=== PATIENT | male | born 1985 | race Caucasian/White ===

== ENCOUNTER 2016-06-22 02:40 | Emergency (ER) | payer MEDICAID ==
[2016-06-22 02:50] VITALS: BP 133/101
--- NOTE | 2016-06-22 03:04 | EDM.PDOC ---
ED HPI Skin/Rash - General Chief Complaint: Laceration Stated Complaint: LACERATION ON LEFT HAND Time Seen by Provider: 06/22/16 03:01 Source: Reports: Patient, Family History Limitations: Reports: No limitations - History of Present Illness INITIAL COMMENTS - FREE TEXT/NARRATIVE: 30-year-old male arrives in the ED for evaluation of a flap laceration to the tip of his left third finger. Reports he slipped with his steak knife at home tonight with resultant laceration. Inspection of the laceration reveals it to be very thin and of short duration i.e. less than 5 mm.it is not actively bleeding at the time of my exam. He is a little bit unsure about when his last tetanus toxoid was given but after thinking about it for a period of time believes he is up-to-date i.e. within the last 10 years. 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) - Related Data Allergies Allergy/AdvReac Type Severity Reaction Status Date / Time naproxen Allergy Diarrhea Verified 06/22/16 02:50 Home Meds: Ambulatory Orders Medication Instructions Recorded Confirmed LORazepam 0.5 mg PO DAILY 11/02/15 06/22/16 Past Medical History - Past Health History Medical/Surgical History: Denies Medical/Surgical History Psychiatric History: Reports: Anxiety - Past Surgical History HEENT Surgical History: Reports: Tonsillectomy Social & Family History - Tobacco Use Smoking Status *Q: Never Smoker Used Tobacco, but Quit: Yes Month Tobacco Last Used: 2 years Second Hand Smoke Exposure: Yes - Caffeine Use Caffeine Use: Reports: Soda - Alcohol Use Days Per Week of Alcohol Use: 7 Number of Drinks Per Day: 4 Total Drinks Per Week: 28 - Recreational Drug Use Recreational Drug Use: No - Living Situation & Occupation Living situation: Reports: , with family 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[employer]) ED ROS GENERAL - Review of Systems Review Of Systems: See Below Constitutional: Reports: no symptoms HEENT: Reports: No symptoms Respiratory: Reports: no symptoms Cardiovascular: Reports: No symptoms Endocrine: Reports: no symptoms GI/Abdominal: Reports: No symptoms : Reports: no symptoms Neurological: Reports: headache (occasional headaches) Psychiatric: Reports: Anxiety (issues with anxiety that he sometimes needs lorazepam 4.) ED EXAM, SKIN/RASH Exam: See Below Exam Limited By: No limitations General Appearance: alert, WD/WN, anxious, mild distress, other (peers very tired.) Extremities: other (examination was limited to his left distal third finger. There is a small flap laceration measuring less than 0.5 mm in length. I repeated the tip of the flap as it was very thin. I was then able to close the wound with skin glue. Topical circumferential bandage placed.) Neurological: alert, oriented, CN II-XII intact, normal cognition Psychiatric: normal affect, normal mood Skin: Warm, Dry, Intact, Normal color, No rash Course - Vital Signs Last Recorded V/S: Last Vital Signs Temp 36.3 C 06/22/16 02:48 Pulse 99 06/22/16 02:48 Resp 16 06/22/16 02:48 BP 133/101 H 06/22/16 02:48 Pulse Ox 97 06/22/16 02:48 - Radiology Interpretation Free Text/Narrative:: 30-year-old male arrives in the ED for evaluation of a flap laceration to the radial tip of his left third finger. He slipped with a steak knife at home with a small flap laceration along the nailbed. It was less than 0.5 mm in length. I debrided the tip of the flap as it was very thin. I was unable to squeeze the wound together and fluid with skin glue. He will where a circumferential bandage around the finger for 4-5 days until the wound heals. Departure - Departure Time of Disposition: 03:01 Disposition: Home, Self-Care 01 Condition: fair Clinical Impression: Laceration of finger Qualifiers: Encounter type: initial encounter Qualified Code(s): S61.219A - Laceration without foreign body of unspecified finger without damage to nail, initial encounter Instructions: Laceration Care, Adult Referrals: Gena Freire DO [Primary Care Provider] - Forms: ED Department Discharge Additional Instructions: Evaluation emergent today in regards to a small flap laceration along the nailbed of the left third finger. This occurred when he slipped with a steak knife tonight at home. the wound was not deep enough to require sutures. The tissue that was very thin was removed with scissors. The wound is then closed using skin glue. Nothing further needs to be done to the finger.suggested a circumferential bandage on the area just to protect it for the next 4-5 days. It needs to of course be kept dry in the workplacefor about the next week. Suggest wearing latex gloves.
== END 2016-06-22 03:31 | disposition home or self-care (01) ==
LOC: JD.ED 02:40
DX: S61.213A Laceration without foreign body of left middle finger without damage to nail, initial encounter (principal); F41.9 Anxiety disorder, unspecified; Z98.890 Other specified postprocedural states; Z88.8 Allergy status to other drugs, medicaments and biological substances; W26.0XXA Contact with knife, initial encounter; Y92.009 Unspecified place in unspecified non-institutional (private) residence as the place of occurrence of the external cause
CPT/HCPCS: 12001; 99282-25; 99283-25

== ENCOUNTER 2016-12-01 22:02 | Emergency (ER) | payer BC, MEDICAID ==
[2016-12-01 22:31] VITALS: BP 135/90
[2016-12-01] MEDS ORDERED: Acetaminophen 325 MG Tab PO ONE (22:48)
--- NOTE | 2016-12-01 23:11 | EDM.PDOC ---
<Unique Robles - Last Filed: 12/02/16 16:29> ED HPI GENERAL MEDICAL PROBLEM - General Chief Complaint: Lower Extremity Injury/Pain Stated Complaint: Knee pain Time Seen by Provider: 12/01/16 22:30 - Related Data Allergies Allergy/AdvReac Type Severity Reaction Status Date / Time naproxen Allergy Diarrhea Verified 12/03/16 22:42 Home Meds: Home Meds LORazepam 0.5 mg PO DAILY 11/02/15 [History] oxyCODONE HCl/Acetaminophen [Percocet 5-325 mg Tablet] 1 - 2 each PO Q4H PRN # 20 tablet 12/04/16 [Rx] Course - Vital Signs Last Recorded V/S: Last Vital Signs Temp 98.1 F 12/01/16 22:28 Pulse 109 H 12/01/16 22:28 Resp 16 12/01/16 22:28 BP 135/90 12/01/16 22:28 Pulse Ox 97 12/01/16 22:28 - Orders/Labs/Meds Meds: Medications Discontinued Medications Generic Name Dose Route Start Last Admin Trade Name Freq PRN Reason Stop Dose Admin Acetaminophen 975 mg 12/01/16 22:48 12/01/16 22:53 Tylenol PO 12/01/16 22:49 975 mg NOW ONE Administration - Radiology Interpretation Free Text/Narrative:: Right of the right knee impression per Dr. Moya: 1. slight medial joint space narrowing as compared to the lateral joint. 2. No acute abnormality is seen on right knee exam. Departure - Departure Disposition: Home, Self-Care 01 Clinical Impression: Right knee sprain Qualifiers: Encounter type: initial encounter Involved ligament of knee: unspecified ligament Qualified Code(s): S83.91XA - Sprain of unspecified site of right knee , initial encounter - Discharge Information Instructions: Knee Sprain, [id number] Referrals: PCP,None [Primary Care Provider] - Forms: ED Department Discharge Additional Instructions: Rest, ice and elevate Tylenol and/or Ibuprofen as needed for pain Follow-up with one of our orthopedic surgeons if not improved in 1-2 weeks: Dr. Thompson [phone] Dr. Euceda [phone] <Areli Womack - Last Filed: 12/05/16 19:31> ED HPI GENERAL MEDICAL PROBLEM - General Source of Information: Reports: Patient, RN Notes Reviewed History Limitations: Reports: No Limitations - History of Present Illness INITIAL COMMENTS - FREE TEXT/NARRATIVE: 31 year old male presents to the ED with complaints of right knee pain and swelling after falling from a chair. No numbness or tingling. He has pain with bearing weight. He's had surgery on this knee in the past. No additional injury. Right Knee Pain Score (Numeric/FACES): 8 Past Medical History - Past Health History Medical/Surgical History: Denies Medical/Surgical History Psychiatric History: Reports: Anxiety - Past Surgical History HEENT Surgical History: Reports: Tonsillectomy Social & Family History - Family History Cardiac: Reports: Bypass Endocrine/Metabolic: Reports: Diabetes, type II - Tobacco Use Smoking Status *Q: Never Smoker Used Tobacco, but Quit: Yes Month Tobacco Last Used: 2 years Second Hand Smoke Exposure: Yes - Caffeine Use Caffeine Use: Reports: Soda - Alcohol Use Days Per Week of Alcohol Use: 7 Number of Drinks Per Day: 4 Total Drinks Per Week: 28 - Recreational Drug Use Recreational Drug Use: No - Living Situation & Occupation Living situation: Reports: , with Family Occupation: Employed Review of Systems - Review of Systems Review Of Systems: See Below Musculoskeletal: Reports: Joint Pain, Joint Swelling Skin: Reports: No Symptoms Neurological: Denies: Numbness, Tingling, Weakness ED EXAM, GENERAL - Physical Exam Exam: See Below Exam Limited By: No Limitations General Appearance: Alert, WD/WN, No Apparent Distress Extremities: Joint Swelling, Leg Pain (right knee ) Neurological: Alert, Normal Cognition, No Motor/Sensory Deficits Skin Exam: Warm, Dry, Intact Course - Re-Assessments/Exams Free Text/Narrative Re-Assessment/Exam: X-rays of right knee are negative for bony abnormality. Educated on supportive care. Instructed to f/u with ortho if not improved in 1-2 weeks. Departure - Departure Time of Disposition: 23:10 Condition: Good
--- NOTE | 2016-12-02 10:44 | CR ---
Right knee: Four views of the right knee were obtained. Comparison: Previous right knee study of 03/25/16. Very slight medial joint space narrowing is seen as compared to the lateral joint compartment. No joint effusion is appreciated. No fracture or other bony abnormality is appreciated. Impression: 1. Slight medial joint space narrowing as compared to the lateral joint. 2. No acute abnormality is seen on right knee exam. Diagnostic code #2
== END 2016-12-01 23:15 | disposition home or self-care (01) ==
LOC: JD.ED 22:02
DX: S83.91XA Sprain of unspecified site of right knee, initial encounter (principal); F41.9 Anxiety disorder, unspecified; Z79.899 Other long term (current) drug therapy; Z98.890 Other specified postprocedural states; Z87.891 Personal history of nicotine dependence; W07.XXXA Fall from chair, initial encounter
CPT/HCPCS: 73564; 99284; A9270; 99282

== ENCOUNTER 2016-12-03 22:27 | Emergency (ER) | payer BC, MEDICAID ==
[2016-12-03 22:42] VITALS: BP 140/100
--- NOTE | 2016-12-03 23:15 | EDM.PDOC ---
ED HPI GENERAL MEDICAL PROBLEM - General Chief Complaint: Lower Extremity Injury/Pain Stated Complaint: RIGHT KNEE EXTENDED Time Seen by Provider: 12/03/16 23:10 Source of Information: Reports: Patient History Limitations: Reports: No Limitations - History of Present Illness INITIAL COMMENTS - FREE TEXT/NARRATIVE: 30-year-old male presents the ED with acute onset of severe right knee pain. He states he was out playing hide and seek with his kids when he went to jump over a small chain-link fence. He landed with all of his weight on his right knee. The knee gave out and buckled and caused him to fall to the ground. The pain was severe and he was unable to get up on his own volition he had to be helped up by friends. The known ACL tear in the right knee but elected conservative treatment versus surgery management. When he tries to walk now he feels complete instability of the knee. He denies any other injuries. Onset: Today Onset Date: 12/03/16 Onset Time: 22:50 Duration: Minutes: Location: Reports: Lower Extremity, Right Quality: Reports: Ache (Right knee), Throbbing Severity: Severe (Pain is severe when he tries to stand or walk.) Improves with: Reports: Other Worsens with: Reports: Other (Not moving) Context: Reports: Activity ( weightbearing was running and jumping over a chain link fence when he developed sudden onset of severe right knee pain in the buckling and giving out. 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 Right Knee Pain Score (Numeric/FACES): 8 - Related Data Allergies Allergy/AdvReac Type Severity Reaction Status Date / Time naproxen Allergy Diarrhea Verified 12/03/16 22:42 Home Meds: Home Meds LORazepam 0.5 mg PO DAILY 11/02/15 [History] oxyCODONE HCl/Acetaminophen [Percocet 5-325 mg Tablet] 1 - 2 each PO Q4H PRN # 20 tablet 12/04/16 [Rx] Past Medical History - Past Health History Medical/Surgical History: Denies Medical/Surgical History Musculoskeletal History: Reports: Fracture, Other (See Below) Other Musculoskeletal History: Torn ACL in the right knee in the past treated conservatively without surgery. Psychiatric History: Reports: Anxiety - Past Surgical History HEENT Surgical History: Reports: Tonsillectomy Social & Family History - Family History Family Medical History: Noncontributory Cardiac: Reports: Bypass Endocrine/Metabolic: Reports: Diabetes, type II - Tobacco Use Smoking Status *Q: Former Smoker Used Tobacco, but Quit: Yes Month Tobacco Last Used: 12/03/2002 Second Hand Smoke Exposure: Yes - Caffeine Use Caffeine Use: Reports: Soda - Alcohol Use Days Per Week of Alcohol Use: 7 Number of Drinks Per Day: 4 Total Drinks Per Week: 28 - Recreational Drug Use Recreational Drug Use: No - Living Situation & Occupation Living situation: Reports: , with Family Occupation: Employed Review of Systems - Review of Systems Review Of Systems: See Below Constitutional: Reports: No Symptoms Eyes: Reports: No Symptoms Ears: Reports: No Symptoms Nose: Reports: No Symptoms Mouth/Throat: Reports: No Symptoms Respiratory: Reports: No Symptoms Cardiovascular: Reports: No Symptoms GI/Abdominal: Reports: No Symptoms Musculoskeletal: Reports: Joint Pain Skin: Reports: No Symptoms (Severe right knee pain at present) Neurological: Reports: No Symptoms Psychiatric: Reports: No Symptoms ED EXAM, GENERAL - Physical Exam Exam: See Below Exam Limited By: No Limitations General Appearance: Alert, WD/WN, Anxious, Moderate Distress Eye Exam: Bilateral Eye: Normal Inspection Cardiovascular: Normal Peripheral Pulses, Regular Rate, Rhythm, No Edema, No Murmur Peripheral Pulses: 2+: Posterior Tibial (L), Posterior Tibial (R), Dorsalis Pedis (L), Dorsalis Pedis (R) GI/Abdominal: Soft Extremities: Other (On examination of his right knee there is no evidence of a traumatic effusion at this time. Pain is primarily across the anterior medial joint space. He is warm to palpation. He has some superficial abrasions that travels along the medial aspect of the knee starting at the proximal tibia and ending up shelter up his left medial thigh in the distribution of the hamstrings. It I believe this is where the chain link fence scraped along his leg. Examination of his knee was carried out after x-rays confirm no bony injuries. He has no significant instability of the anterior posterior cruciate ligaments on examination. There is swelling along the medial aspect of the knee and on valgus straining of the knee he exhibits a grade 2 MCL tear. Again there is no significant traumatic effusion in the knee to suggest meniscal tear at this time.) Neurological: Alert ( anterior tibia on the left side.), Oriented, CN II-XII Intact, Normal Cognition, Normal Gait, No Motor/Sensory Deficits Psychiatric: Other Skin Exam: Warm, Dry (Very dramatic affect.), Intact, Normal Color, No Rash Course - Vital Signs Last Recorded V/S: Last Vital Signs Temp 36.3 C 12/03/16 22:37 Pulse 82 12/03/16 22:37 Resp 18 12/03/16 22:37 BP 140/100 H 12/03/16 22:37 Pulse Ox 95 12/03/16 22:37 - Orders/Labs/Meds Orders: Active Orders 24 hr Category Date Time Status Knee 3V Rt [CR] Stat Exams 12/03/16 23:31 Taken Meds: Medications Discontinued Medications Generic Name Dose Route Start Last Admin Trade Name Freq PRN Reason Stop Dose Admin Oxycodone/Acetaminophen 2 tab 12/04/16 00:12 12/04/16 00:22 Percocet 325-5 Mg PO 12/04/16 00:13 2 tab ONETIME ONE Administration - Radiology Interpretation Free Text/Narrative:: 31-year-old male presents the ED with acute onset of severe right knee pain after jumping over a chain link fence. Patient has previous problems with ACL tear in his right knee and he landed with all of his weight on his right knee tonight while he was jumping over the small chain-link fence. The knee buckled and gave out propelling him to the ground. Pain was excruciating and he could got not get up on his own volition. On examination he has no obvious effusion of the knee yet. Coarse he arrived within 20 minutes of injury. The knee feels completely unstable when he tries to weight-bear or put weight on it. Suggest complete tear of his ACL and possibly PCL as well. Plan x-ray of the need to be done. - Re-Assessments/Exams Free Text/Narrative Re-Assessment/Exam: 12/04/16 00:01 x-ray of the right knee is within normal limits showing no obvious effusion and certainly no fractures or tibial plateau injuries. 12/04/16 00:15: I assessed his knee again from a ligament standpoint. There appears to be no instability of the anterior posterior cruciate ligaments. There is no midline tenderness particularly anteriorly and medially over the MCL. On stressing the MCL but with valgus strain in full extension. Minimal pain at 30 flexion he does exhibit some laxity of the MCL suggesting grade 2 strain. There is no effusion of the knee at the time of second examination. He will be placed in a long knee immobilizer and I think he'll get along okay with this without crutches. He will ice the knee one half hour out of every 4 hours today and tomorrow. He has inability to have alternative work where he would not have to climb up into machinery in the workplace for the next few weeks. Will use Motrin 600 mg every 6 hours. For pain relief and a prescription was written for 20 tablets of Percocet 5/325 milligrams one or 2 every 4-6 hours for pain relief for the next few days. He will follow-up with orthopedic surgery in 2-3 weeks' time if knee as not returning to its normal status before injury tonight. Departure - Departure Time of Disposition: 00:13 Disposition: Home, Self-Care 01 Condition: Fair Clinical Impression: Sprain of MCL (medial collateral ligament) of knee Qualifiers: Encounter type: initial encounter Laterality: right Qualified Code(s): S83.411A - Sprain of medial collateral ligament of right knee, initial encounter - Discharge Information Prescriptions: oxyCODONE HCl/Acetaminophen [Percocet 5-325 mg Tablet] 1 - 2 each PO Q4H PRN # 20 tablet PRN Reason: pain relief. Instructions: Medial Collateral Knee Ligament Sprain With Phase I Rehab- [facility] Referrals: PCP,None [Primary Care Provider] - Forms: ED Department Discharge Additional Instructions: Evaluation in the emergency room tonight in regards to acute injury to the right knee while jumping over a small fence. The history suggests internal derangement or instability of the right knee. History of previous ACL tear. Examination reveals swelling along the medial or inside aspect of the knee and there is a grade 2 strain of the medial collateral ligament. Therefore there may also be a partial tear of the medial meniscus or cartilage within the knee. The cruciate ligaments appear to be intact on examination. X-ray of the knee is normal. Treatment is therefore time to heal. Suggest knee immobilizer on during the day and off at night. Suggest using this for a minimum of 3 weeks and then see if you can go without it with out pain or feeling of the knee being unstable. Suggest ice pack to the knee one half hour out of every 4 hours today and tomorrow. May use Percocet 5//25 milligram tablets one or 2 every 4-6 hours for pain relief as needed. As we discussed he may have to have alternative work duties in the workplace for the next 2-3 weeks that she will not be able to climb up and down out of machinery etc. Suggest follow-up with orthopedic surgeon in 3 weeks' time to see if there is still significant instability of the MCL ligament. Please phone Dr. Thompson's office next week to arrange an appointment. The numbers [phone]. - My Orders Last 24 Hours: My Active Orders 12/03/16 23:31 Knee 3V Rt [CR] Stat - Assessment/Plan Last 24 Hours: My Active Orders 12/03/16 23:31 Knee 3V Rt [CR] Stat
[2016-12-03] MEDS ORDERED: Iopamidol 612 MG/ML 150 ML Bottle IVPUSH ONE (23:23)
[2016-12-04] MEDS ORDERED: Acetaminophen/oxyCODONE 325-5 MG Tab PO ONE (00:12)
--- NOTE | 2016-12-05 07:24 | CR ---
Right knee: AP and lateral views of the right knee were obtained as well as sunrise patellar view. Comparison: Previous right knee study of 12/01/16. Findings: Joint spaces appear maintained on this exam. No joint effusion is seen. Patellofemoral joint appears within normal limits. Impression: 1. Nothing acute is appreciated. Diagnostic code #1
== END 2016-12-04 00:35 | disposition home or self-care (01) ==
LOC: JD.ED 22:27
DX: S83.411A Sprain of medial collateral ligament of right knee, initial encounter (principal); F41.9 Anxiety disorder, unspecified; E11.9 Type 2 diabetes mellitus without complications; Z88.5 Allergy status to narcotic agent; Z98.890 Other specified postprocedural states; Z79.899 Other long term (current) drug therapy; Z87.891 Personal history of nicotine dependence; W17.89XA Other fall from one level to another, initial encounter; Y93.39 Activity, other involving climbing, rappelling and jumping off
CPT/HCPCS: 73562; 99283; A9270

== ENCOUNTER 2017-02-28 19:53 | Emergency (ER) | payer BC, MEDICAID ==
[2017-02-28 20:00] VITALS: BP 145/95
[2017-02-28] MEDS ORDERED: Sodium Chloride 0.9% 1,000 ML IV ONE (20:26)
--- NOTE | 2017-02-28 20:37 | EDM.PDOC ---
ED HPI GENERAL MEDICAL PROBLEM - General Chief Complaint: Abdominal Pain Stated Complaint: RIGHT SIDE PAIN Time Seen by Provider: 02/28/17 20:10 Source of Information: Reports: Patient History Limitations: Reports: No Limitations - History of Present Illness INITIAL COMMENTS - FREE TEXT/NARRATIVE: 31-year-old male presents for evaluation treatment of right-sided abdominal pain. Patient reports that the pain has been present for the last week. He states that is episodic in nature and comes and goes. He gets that currently the pain is a 5 out of 10. States it is a sharp, stabbing pain. He reports associated symptoms of diarrhea and nausea. He has not taken his temperature but has felt warm. No vomiting, dysuria, hematuria, melena or constipation. Reports he's had about 5 episodes of diarrhea per day. Patient denies any recent antibiotics. Patient denies any recent travel. No previous surgeries to his abdomen. Duration: Week(s): (1) Location: Reports: Abdomen (RLQ) Right Abdominal Pain Score (Numeric/FACES): 5 - Related Data Allergies Allergy/AdvReac Type Severity Reaction Status Date / Time naproxen Allergy Diarrhea Verified 02/28/17 19:57 Home Meds: Home Meds LORazepam 0.5 mg PO DAILY 11/02/15 [History] Past Medical History - Past Health History Medical/Surgical History: Denies Medical/Surgical History Musculoskeletal History: Reports: Fracture, Other (See Below) Other Musculoskeletal History: Torn ACL in the right knee in the past treated conservatively without surgery. Psychiatric History: Reports: Anxiety - Past Surgical History HEENT Surgical History: Reports: Tonsillectomy Social & Family History - Family History Family Medical History: Noncontributory Cardiac: Reports: Bypass Endocrine/Metabolic: Reports: Diabetes, type II - Tobacco Use Smoking Status *Q: Never Smoker Used Tobacco, but Quit: Yes Month Tobacco Last Used: 12/03/2002 Second Hand Smoke Exposure: Yes - Caffeine Use Caffeine Use: Reports: Soda - Alcohol Use Days Per Week of Alcohol Use: 7 Number of Drinks Per Day: 4 Total Drinks Per Week: 28 - Recreational Drug Use Recreational Drug Use: No - Living Situation & Occupation Living situation: Reports: , with Family Occupation: Employed ED ROS GENERAL - Review of Systems Review Of Systems: See Below Constitutional: Denies: Fever GI/Abdominal: Reports: Abdominal Pain, Diarrhea, Nausea. Denies: Hematochezia, Melena, Vomiting : Denies: Dysuria, Hematuria ED EXAM, GI/ABD - Physical Exam Exam: See Below Exam Limited By: No Limitations General Appearance: Alert, WD/WN, No Apparent Distress Respiratory/Chest: No Respiratory Distress, Lungs Clear, Normal Breath Sounds Cardiovascular: Normal Peripheral Pulses, Regular Rate, Rhythm, No Murmur GI/Abdominal Exam: Normal Bowel Sounds, Soft, Tender (RLQ), Other (+ psosas sign , + obturator sign; - pain with heel percussion). No: Guarding, Rebound, Hepatomegaly Neurological: Alert, Oriented, Normal Cognition Psychiatric: Normal Affect, Normal Mood Skin Exam: Warm, Dry, Normal Color Course - Vital Signs Last Recorded V/S: Last Vital Signs Temp 36.4 C 02/28/17 19:58 Pulse 98 02/28/17 19:58 Resp BP 145/95 H 02/28/17 19:58 Pulse Ox 98 02/28/17 19:58 - Orders/Labs/Meds Orders: Active Orders 24 hr Category Date Time Status Peripheral IV Care [RC] . DIRECTED Care 02/28/17 20:26 Ordered Abdomen Pelvis w Cont [CT] Stat Exams 02/28/17 20:26 Ordered Sodium Chloride 0.9% [Saline Flush] Med 02/28/17 20:26 Ordered 10 ml FLUSH ASDIRECTED PRN Peripheral IV Insertion Adult [OM.PC] Routine Oth 02/28/17 20:25 Ordered Medication Orders Sodium Chloride (Saline Flush) 10 ml FLUSH ASDIRECTED PRN PRN Reason: Keep Vein Open Last Admin: 02/28/17 22:14 Dose: 10 ml Admin: 02/28/17 20:54 Dose: 10 ml Labs: Laboratory Tests 02/28/17 02/28/17 02/28/17 Range/Units 20:27 20:43 20:43 WBC 6.20 (4.23-9.07) K/mm3 RBC 4.44 L (4.63-6.08) M/mm3 Hgb 13.9 (13.7-17.5) gm/L Hct 39.7 L (40.1-51.0) % MCV 89.4 (79.0-92.2) fl MCH 31.3 (25.7-32.2) pg MCHC 35.0 (32.2-35.5) g/dl RDW Std Deviation 39.6 (35.1-43.9) fL Plt Count 226 (163-337) K/mm3 MPV 9.2 L (9.4-12.3) fl Neutrophils % (Manual) 59 (40-60) % Band Neutrophils % 0 (0-10) % Lymphocytes % (Manual) 35 (20-40) % Atypical Lymphs % 0 % Monocytes % (Manual) 3 (2-10) % Eosinophils % (Manual) 3 (0.8-7.0) % Basophils % (Manual) 0 L (0.2-1.2) Platelet Estimate Adequate Plt Morphology Comment Normal RBC Morph Comment Normal Sodium 145 (136-145) mEq/L Potassium 3.6 (3.5-5.1) mEq/L Chloride 107 (98-107) mEq/L Carbon Dioxide 27 (21-32) mEq/L Anion Gap 14.6 (5-15) BUN 12 (7-18) mg/dL Creatinine 0.9 (0.7-1.3) mg/dL Est Cr Clr Drug Dosing 124.34 mL/min Estimated GFR (MDRD) > 60 (>60) mL/min BUN/Creatinine Ratio 13.3 L (14-18) Glucose 95 (74-106) mg/dL Calcium 9.1 (8.5-10.1) mg/dL Total Bilirubin 0.2 (0.2-1.0) mg/dL AST 21 (15-37) U/L ALT 38 (16-63) U/L Alkaline Phosphatase 62 (46-116) U/L C-Reactive Protein < 0.2 (<1.0) mg/dL Total Protein 7.5 (6.4-8.2) g/dl Albumin 3.9 (3.4-5.0) g/dl Globulin 3.6 gm/dL Albumin/Globulin Ratio 1.1 (1-2) Lipase 234 (73-393) U/L Urine Color Yellow (Yellow) Urine Appearance Clear (Clear) Urine pH 6.5 (5.0-8.0) Ur Specific [place] 1.010 (1.005-1.030) Urine Protein Negative (Negative) Urine Glucose (UA) Negative (Negative) Urine Ketones Negative (Negative) Urine Occult Blood Negative (Negative) Urine Nitrite Negative (Negative) Urine Bilirubin Negative (Negative) Urine Urobilinogen 0.2 (0.2-1.0) Ur Leukocyte Esterase Negative (Negative) Urine RBC Not seen (0-5) /hpf Urine WBC 0-5 (0-5) /hpf Ur Epithelial Cells 0-5 (0-5) /hpf Urine Bacteria Not seen (FEW) /hpf Urine Mucus Not seen (FEW) /hpf Meds: Medications Generic Name Dose Route Start Last Admin Trade Name Freq PRN Reason Stop Dose Admin Sodium Chloride 10 ml 02/28/17 20:26 02/28/17 22:14 Saline Flush FLUSH 10 ml ASDIRECTED PRN Administration Keep Vein Open Discontinued Medications Generic Name Dose Route Start Last Admin Trade Name Freq PRN Reason Stop Dose Admin Diatrizoate Meglum/Diatrizoate Sod 90 ml 02/28/17 21:38 02/28/17 22:14 Gastrografin 37% PO 02/28/17 21:39 90 ml ONETIME ONE Administration Sodium Chloride 1,000 mls @ 999 mls/hr 02/28/17 20:26 02/28/17 20:54 Normal Saline IV 02/28/17 21:26 999 mls/hr ONETIME ONE Administration Iopamidol 120 ml 02/28/17 21:38 02/28/17 22:14 Isovue-300 (61%) IVPUSH 02/28/17 21:39 120 ml ONETIME ONE Administration - Radiology Interpretation Free Text/Narrative:: CT of the abdomen and pelvis with contrast impression per [facility]: no acute findings. CT Results Date: 02/28/17 - Re-Assessments/Exams Free Text/Narrative Re-Assessment/Exam: 02/28/17 22:31 I reviewed the labs and CT results with the patient. There is some GI bug going around the community. When he start probiotic for this. His discomfort is likely from a pulled muscle. Recommend Tylenol, Motrin and heat as needed for this. Will discharge home at this time. Discharge instructions as documented. Departure - Departure Time of Disposition: 22:36 Disposition: Home, Self-Care 01 Condition: Good Clinical Impression: Muscle strain - Discharge Information Referrals: Rere Hernandez SECURITY VEHICLE PATROL OFFICER [Primary Care Provider] - Forms: ED Department Discharge Additional Instructions: [id number] Tylenol and Motrin as needed for pain relief. Also recommend starting heat to the sore areas. Recommend starting a probiotic. These are available [id number]. If your symptoms persist beyond 1 week, follow-up with your primary care provider. Please return to ER if your symptoms change or worsen. - My Orders Last 24 Hours: My Active Orders 02/28/17 20:25 Peripheral IV Insertion Adult [OM.PC] Routine 02/28/17 20:26 Peripheral IV Care [RC] . DIRECTED Abdomen Pelvis w Cont [CT] Stat Sodium Chloride 0.9% [Saline Flush] 10 ml FLUSH ASDIRECTED PRN - Assessment/Plan Last 24 Hours: My Active Orders 02/28/17 20:25 Peripheral IV Insertion Adult [OM.PC] Routine 02/28/17 20:26 Peripheral IV Care [RC] . DIRECTED Abdomen Pelvis w Cont [CT] Stat Sodium Chloride 0.9% [Saline Flush] 10 ml FLUSH ASDIRECTED PRN
[2017-02-28] MEDS: Sodium Chloride 0.9% 10 ML Syringe FLUSH PRN ×2 (20:54→22:14)
[2017-02-28] MEDS ORDERED: Diatrizoate Meglumine/Diatrizoate Sodium 37% 120 ML Bottle PO ONE (21:38)
[2017-02-28] MEDS ORDERED: Iopamidol 612 MG/ML 150 ML Bottle IVPUSH ONE (21:38)
--- NOTE | 2017-03-01 06:56 | CT ---
CT abdomen and pelvis Technique: Multiple axial sections were obtained from above the dome of the diaphragm inferiorly through the pubic symphysis. Intravenous and oral contrast was utilized. Delayed images were also obtained through the bladder. Comparison: Prior CT abdomen and pelvis exam of 11/02/15. Findings: Visualized lung bases show nothing acute. Liver shows no focal parenchymal abnormality. Small amount of contrast is identified within the esophagus compatible with reflux. Spleen appears within normal limits. Adrenal glands show no nodule. Kidneys show symmetric contrast enhancement without hydronephrosis or mass. Appendix is seen which is normal. Pancreas is within normal limits. Aorta shows no aneurysmal dilatation. No retroperitoneal adenopathy is seen. No pelvic mass or adenopathy is seen. No inflammatory change or free fluid is seen. Delayed images show contrast within the distal ureters and within the bladder. No bowel dilatation is seen. Bone window settings were reviewed which appear within normal limits for the patient's age. Impression: 1. Small amount of contrast within the distal esophagus compatible with reflux. 2. No additional abnormality is identified on CT study of the abdomen and pelvis. No significant change is seen from prior study. Diagnostic code #2 I agree with preliminary report issued by [facility] ([facility] preliminary report dictated on 02/28/17, 11:26 PM Central Time)
== END 2017-02-28 22:40 | disposition home or self-care (01) ==
LOC: JD.ED 19:53
DX: S39.011A Strain of muscle, fascia and tendon of abdomen, initial encounter (principal); X58.XXXA Exposure to other specified factors, initial encounter
CPT/HCPCS: 36415; 74177; 80053; 81001; 83690; 85025; 86140; 96360; 99284; J7040; J7050; Q9963; Q9967

== ENCOUNTER 2017-06-22 14:13 | Emergency (ER) | payer BC ==
[2017-06-22 14:18] VITALS: BP 147/117
--- NOTE | 2017-06-22 15:41 | EDM.PDOC ---
ED HPI GENERAL MEDICAL PROBLEM - General Chief Complaint: ENT Problem Stated Complaint: TOOTH PAIN Time Seen by Provider: 06/22/17 15:16 Source of Information: Reports: Patient History Limitations: Reports: No Limitations - History of Present Illness INITIAL COMMENTS - FREE TEXT/NARRATIVE: 31-year-old male presents for evaluation and treatment of right upper tooth pain. States he has an appointment with dental next Monday. Reports the pain is a 10 out of 10. He reports associated swelling to the right maxilla. Reports bad taste in his mouth. No fevers, chills, nausea or vomiting. States that the pain radiates up into his right sinus. Does not recall the last time he has been to a dentist. Treatments TOY DEPARTMENT MANAGER: Reports: NSAIDS Right Tooth/Teeth Pain Score (Numeric/FACES): 10 - Related Data Allergies Allergy/AdvReac Type Severity Reaction Status Date / Time naproxen Allergy Diarrhea Verified 06/22/17 14:18 Home Meds: Home Meds Acetaminophen/oxyCODONE [Percocet 325-5 MG] 1 tab PO Q4HR PRN #15 tab 06/22/17 [ Rx] Amoxicillin/Potassium Clav [Augmentin 875-125 Tablet] 1 each PO BID #20 tablet 06/22/17 [Rx] LORazepam [Ativan] 0.5 mg PO BID PRN 06/22/17 [History] Past Medical History HEENT History: Reports: Other (See Below) Other HEENT History: multiple teeth extracted Psychiatric History: Reports: Anxiety - Past Surgical History HEENT Surgical History: Reports: Oral Surgery Social & Family History - Tobacco Use Smoking Status *Q: Never Smoker - Caffeine Use Caffeine Use: Reports: None - Recreational Drug Use Recreational Drug Use: No ED ROS ENT - Review of Systems Review Of Systems: See Below Constitutional: Denies: Fever, Chills HEENT: Reports: Dental Pain (right upper tooth), Other (facial swelling) GI/Abdominal: Denies: Nausea, Vomiting ED EXAM, ENT - Physical Exam Exam: See Below Exam Limited By: No Limitations General Appearance: Alert, WD/WN, No Apparent Distress Ears: Normal External Exam, Normal Canal, Hearing Grossly Normal, Normal TMs Nose: Normal Inspection Mouth/Throat: Normal Inspection, Dental Abcess (#3-5), Other (swelling to the right maxilla, no overlying erythema) Neck: Normal Inspection. No: Lymphadenopathy (L), Lymphadenopathy (R) Respiratory/Chest: No Respiratory Distress, Lungs Clear, Normal Breath Sounds Cardiovascular: Normal Peripheral Pulses, Regular Rate, Rhythm, No Murmur Neurological: Alert, Oriented, Normal Cognition Psychiatric: Normal Affect, Normal Mood Skin: Warm, Dry, Normal Color Course - Vital Signs Last Recorded V/S: Last Vital Signs Temp 36.4 C 06/22/17 14:16 Pulse 87 06/22/17 14:16 Resp 18 06/22/17 14:16 BP 147/117 H 06/22/17 14:16 Pulse Ox 98 06/22/17 14:16 Departure - Departure Time of Disposition: 15:36 Disposition: Home, Self-Care 01 Condition: Fair Clinical Impression: Dental abscess - Discharge Information Prescriptions: Acetaminophen/oxyCODONE [Percocet 325-5 MG] 1 tab PO Q4HR PRN #15 tab PRN Reason: Pain Amoxicillin/Potassium Clav [Augmentin 875-125 Tablet] 1 each PO BID #20 tablet Instructions: Dental Abscess Referrals: Rere Hernandez FILLING MIXER [Primary Care Provider] - Forms: ED Department Discharge Additional Instructions: Augmentin twice a day for 10 days. Recommend taking this medication with food. Recommend starting a probiotic or yogurt to help with additional symptom relief. [id number] Tylenol or Motrin as needed for pain relief. Do not take more than 4 g of Tylenol from all sources in 1 day. Do not take more than 3200 mg of ibuprofen. May take Percocet 1-2 tabs every 4-6 hours as needed for severe pain not relieved by Tylenol or Motrin. Percocet can be habit-forming, I recommend you take as few these as needed to control your pain. Do not drive or operate machinery within 12 hours of taking Percocet. Follow-up with the dentist as soon as you were able to. Please return to the ER if your symptoms change or worsen.
== END 2017-06-22 16:00 | disposition home or self-care (01) ==
LOC: MERGE 14:13 → JD.ED 14:13
DX: K04.7 Periapical abscess without sinus (principal); Z88.6 Allergy status to analgesic agent; Z79.899 Other long term (current) drug therapy
CPT/HCPCS: 99283

== ENCOUNTER 2017-09-16 20:47 | Emergency (ER) | payer BC, MEDICAID ==
[2017-09-16 20:57] VITALS: BP 142/94
--- NOTE | 2017-09-16 21:47 | EDM.PDOC ---
ED HPI GENERAL MEDICAL PROBLEM - General Chief Complaint: Upper Extremity Injury/Pain Stated Complaint: KNEE INJURY Time Seen by Provider: 09/16/17 20:58 Source of Information: Reports: Patient, Family History Limitations: Reports: No Limitations - History of Present Illness INITIAL COMMENTS - FREE TEXT/NARRATIVE: This is a 32-year-old male. Back in February 2017 he slipped and twisted his right knee on the ice and he tore his MCL. He went to see an orthopedist and had an MRI at [facility] that showed the injury. Today he was wearing a knee sleeve out mowing the lawn and he noted when he got home the knee was more sore and there was some mild swelling. He comes to the ER because of the mild swelling. He denies any other acute symptoms. He's had no additional trauma. He was not completely satisfied with the orthopedist who told him he didn't need to have a repair because he didn't do sports. He is not happy with this so I suggested he follow up with his family doctor and be referred to an orthopedist that might be able to help him. He understands. Right Knee Pain Score (Numeric/FACES): 7 - Related Data Allergies Allergy/AdvReac Type Severity Reaction Status Date / Time naproxen Allergy Diarrhea Verified 02/28/17 19:57 Home Meds: Home Meds LORazepam [Ativan] 0.5 mg PO BID PRN 06/22/17 [History] Past Medical History - Past Health History Medical/Surgical History: Denies Medical/Surgical History HEENT History: Reports: Other (See Below) Other HEENT History: multiple teeth extracted Musculoskeletal History: Reports: Fracture, Other (See Below) Other Musculoskeletal History: Torn ACL in the right knee in the past treated conservatively without surgery. Psychiatric History: Reports: Anxiety - Past Surgical History HEENT Surgical History: Reports: Oral Surgery, Tonsillectomy Social & Family History - Family History Family Medical History: Noncontributory Cardiac: Reports: Bypass Endocrine/Metabolic: Reports: Diabetes, type II - Tobacco Use Smoking Status *Q: Never Smoker - Caffeine Use Caffeine Use: Reports: None - Recreational Drug Use Recreational Drug Use: No - Living Situation & Occupation Living situation: Reports: with Family, Occupation: Employed Review of Systems - Review of Systems Review Of Systems: See Below Constitutional: Reports: No Symptoms Eyes: Reports: No Symptoms Ears: Reports: No Symptoms Nose: Reports: No Symptoms Mouth/Throat: Reports: No Symptoms Respiratory: Reports: No Symptoms Cardiovascular: Reports: No Symptoms GI/Abdominal: Reports: No Symptoms Genitourinary: Reports: No Symptoms Musculoskeletal: Reports: Other (As per history of present illness) Skin: Reports: No Symptoms Neurological: Reports: No Symptoms Psychiatric: Reports: No Symptoms ED EXAM, GENERAL - Physical Exam Exam: See Below Exam Limited By: No Limitations General Appearance: Alert, WD/WN, No Apparent Distress Eye Exam: Bilateral Eye: Normal Inspection Ears: Normal External Exam Throat/Mouth: Normal Inspection Head: Normocephalic Neck: Supple Respiratory/Chest: No Respiratory Distress Back Exam: Normal Inspection, Full Range of Motion Extremities: Normal Inspection, Other (His right knee does show some mild effusion, his ACL is intact PCL is intact, he does have laxity and tenderness in the MCL noted, he does have a small bruise over his patella or maybe that's when he's been scratching himself and also a scratch on the lateral right lower leg he states it's where he was wearing the knee sleeve and he got real itchy, no evidence of cellulitis or infection) Neurological: Alert, Oriented Psychiatric: Normal Affect, Normal Mood Skin Exam: Warm, Dry Course - Vital Signs Last Recorded V/S: Last Vital Signs Temp 98.9 F 09/16/17 20:54 Pulse 115 H 09/16/17 20:54 Resp 16 09/16/17 20:54 BP 142/94 H 09/16/17 20:54 Pulse Ox 94 L 09/16/17 20:54 Departure - Departure Time of Disposition: 21:49 Disposition: Home, Self-Care 01 Condition: Good Clinical Impression: Knee effusion, right Tear of MCL (medial collateral ligament) of knee Qualifiers: Encounter type: initial encounter Laterality: right Qualified Code(s): S83.411A - Sprain of medial collateral ligament of right knee, initial encounter - Discharge Information Referrals: Rere Hernandez SHUTTLE PREPARATION SUPERVISOR [Primary Care Provider] - Additional Instructions: Follow-up with your family doctor this week, asked her to refer you to a knee specialist to evaluate your knee again, use your knee brace NOT the knee sleeve to help stabilize your knee, ice it down on and off for the next 48 hours, take Aleve or ibuprofen as needed for the soreness, gentle activity with no excessive walking or climbing, return to the ER if needed
== END 2017-09-16 22:00 | disposition home or self-care (01) ==
LOC: JD.ED 20:47
DX: S83.411A Sprain of medial collateral ligament of right knee, initial encounter (principal); M25.461 Effusion, right knee; Z88.6 Allergy status to analgesic agent; X50.9XXA Other and unspecified overexertion or strenuous movements or postures, initial encounter
CPT/HCPCS: 99283

== ENCOUNTER 2018-01-15 17:45 | Emergency (ER) | payer BC, MEDICAID ==
[2018-01-15 17:54] VITALS: BP 147/92
[2018-01-15] MEDS ORDERED: Lidocaine 1% 10 ML MDV INJECT ONE (19:18)
[2018-01-15] MEDS ORDERED: Diphtheria,Pertussis(Acell),Tetanus Vaccine 0.5 ML SDV IM ONE (19:18)
--- NOTE | 2018-01-15 19:20 | EDM.PDOC ---
ED HPI GENERAL MEDICAL PROBLEM - General Chief Complaint: Laceration Stated Complaint: RT HAND BETWEEN RING AND PINKY FINGER LAC Time Seen by Provider: 01/15/18 19:05 Source of Information: Reports: Patient History Limitations: Reports: No Limitations - History of Present Illness INITIAL COMMENTS - FREE TEXT/NARRATIVE: 32-year-old male with a chief complaint of laceration between his first and second fingers of the right hand. He was washing dishes about an hour and a half ago and didn't realize that a glass was broken, the sharp edge of the glass caused the laceration. Initially there was brisk bleeding, the bleeding has now resolved. States it is no longer painful. No additional complaint. No additional injury. Currently has no pain or bleeding. Unsure of last TD. He is right-hand dominant. - Related Data Allergies Allergy/AdvReac Type Severity Reaction Status Date / Time naproxen Allergy Diarrhea Verified 01/15/18 17:54 Home Meds: Home Meds LORazepam [Ativan] 0.5 mg PO BID PRN 06/22/17 [History] Past Medical History - Past Health History Medical/Surgical History: Denies Medical/Surgical History HEENT History: Reports: Other (See Below) Other HEENT History: multiple teeth extracted Musculoskeletal History: Reports: Fracture, Other (See Below) Other Musculoskeletal History: Torn ACL in the right knee in the past treated conservatively without surgery. Psychiatric History: Reports: Anxiety - Past Surgical History HEENT Surgical History: Reports: Oral Surgery, Tonsillectomy Social & Family History - Family History Family Medical History: Noncontributory Cardiac: Reports: Bypass Endocrine/Metabolic: Reports: Diabetes, type II - Tobacco Use Smoking Status *Q: Former Smoker Years of Tobacco use: 5 Used Tobacco, but Quit: Yes Month/Year Tobacco Last Used: 12/2012 - Caffeine Use Caffeine Use: Reports: Soda - Alcohol Use Days Per Week of Alcohol Use: 3 Number of Drinks Per Day: 2 Total Drinks Per Week: 6 - Recreational Drug Use Recreational Drug Use: No - Living Situation & Occupation Living situation: Reports: with Family, Occupation: Employed ED ROS GENERAL - Review of Systems Review Of Systems: See Below Constitutional: Reports: No Symptoms HEENT: Reports: No Symptoms Respiratory: Reports: No Symptoms Cardiovascular: Reports: No Symptoms GI/Abdominal: Reports: No Symptoms Musculoskeletal: Reports: Hand Pain Skin: Reports: Wound ED EXAM, SKIN/RASH Exam: See Below Exam Limited By: No Limitations General Appearance: Alert, WD/WN, No Apparent Distress Ears: Normal External Exam Nose: Normal Inspection Throat/Mouth: Normal Inspection, Normal Voice Head: Atraumatic, Normocephalic Neck: Normal Inspection Respiratory/Chest: No Respiratory Distress Cardiovascular: Normal Peripheral Pulses Extremities: Other (Right hand: 1 cm laceration between the first and second digits, subcutaneous, no bleeding, no visible foreign body, linear) Neurological: Alert, Oriented, Normal Cognition, No Motor/Sensory Deficits Psychiatric: Normal Affect, Normal Mood Skin: Warm, Dry, Normal Color ED SKIN PROCEDURES - Laceration/Wound Repair Right Hand Lac/Wound length In cm: 0.5 Appearance: Subcutaneous Distal NVT: Neuro & Vascular Intact, No Tendon Injury Anesthetic Type: Local Local Anesthesia - Lidocaine (Xylocaine): 1% Plain Local Anesthetic Volume: 1cc Saline Irrigation (cc's): 100 Exploration/Debridement/Repair: Wound Explored, In a Bloodless Field, Explored to Base Closed with: Sutures Suture Size: 4-0 # of Sutures: 3 Suture Type: Nylon, Interrupted, Simple Sterile Dressing Applied: Nurse Tetanus Status Addressed: Yes Complications: No Course - Vital Signs Last Recorded V/S: Last Vital Signs Temp 37.1 C 01/15/18 17:51 Pulse 84 01/15/18 17:51 Resp 14 01/15/18 17:51 BP 147/92 H 01/15/18 17:51 Pulse Ox 98 01/15/18 17:51 - Orders/Labs/Meds Orders: Active Orders 24 hr Category Date Time Status Vaccines to be Administered [RC] PER UNIT ROUTINE Care 01/15/18 19:18 Active Meds: Medications Discontinued Medications Generic Name Dose Route Start Last Admin Trade Name Freq PRN Reason Stop Dose Admin Diphtheria/Tetanus/Acell Pertussis 0.5 ml 01/15/18 19:18 01/15/18 19:29 Adacel IM 01/15/18 19:19 0.5 ml .ONCE ONE Administration Lidocaine HCl 10 ml 01/15/18 19:18 01/15/18 19:29 Xylocaine 1% INJECT 01/15/18 19:19 10 ml ONETIME ONE Administration Departure - Departure Time of Disposition: 21:00 Disposition: Home, Self-Care 01 Clinical Impression: Hand laceration Qualifiers: Encounter type: initial encounter Foreign body presence: without foreign body Laterality: right Qualified Code(s): S61.411A - Laceration without foreign body of right hand, initial encounter - Discharge Information Instructions: Laceration Care, Adult, [id number] Referrals: PCP,None [Primary Care Provider] - Forms: ED Department Discharge Additional Instructions: 1. Keep wound clean and dry. Starting tomorrow, okay to wash hand and with gentle soap and water. Then gently dry and apply antibiotic ointment. Keep wound covered. Consider jackie taping index and middle fingers to avoid pulling on the wound. 2. Sutures should be removed in 12-14 days. Your regular doctor can remove them or you can schedule removal at the walk-in clinic here. Call [phone] to schedule. 3. Return to the emergency department for any signs of infection such as worsening pain, redness, swelling, or pus under the wound. - My Orders Last 24 Hours: My Active Orders 01/15/18 19:18 Vaccines to be Administered [RC] PER UNIT ROUTINE - Assessment/Plan Last 24 Hours: My Active Orders 01/15/18 19:18 Vaccines to be Administered [RC] PER UNIT ROUTINE
== END 2018-01-15 20:00 | disposition home or self-care (01) ==
LOC: JD.ED 17:45
DX: S61.411A Laceration without foreign body of right hand, initial encounter (principal); Z23 Encounter for immunization; Z87.891 Personal history of nicotine dependence; Z88.8 Allergy status to other drugs, medicaments and biological substances; W26.8XXA Contact with other sharp object(s), not elsewhere classified, initial encounter
CPT/HCPCS: 12001; 12002; 90471; 90715; 99283-25

== ENCOUNTER 2018-05-12 16:02 | Emergency (ER) | payer BC ==
[2018-05-12 16:21] VITALS: BP 131/89
--- NOTE | 2018-05-12 17:26 | EDM.PDOC ---
ED HPI GENERAL MEDICAL PROBLEM - General Chief Complaint: Headache Stated Complaint: MIGRAINES Time Seen by Provider: 05/12/18 16:28 Source of Information: Reports: Patient, RN Notes Reviewed - History of Present Illness INITIAL COMMENTS - FREE TEXT/NARRATIVE: 32 year old male with L frontal Robin, L facial discomfort for the last week. No nausea or vomiting. Took 1 tylenol earlier today without much relief. No injury to head or face. Last eye exam about a yr ago. Marie not wear glasses or contacts. 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: Reports: Other (see below) Left Headache Pain Score (Numeric/FACES): 7 - Related Data Allergies Allergy/AdvReac Type Severity Reaction Status Date / Time naproxen Allergy Diarrhea Verified 05/12/18 16:31 Home Meds: Home Meds LORazepam [Ativan] 0.5 mg PO BID PRN 06/22/17 [History] Past Medical History - Past Health History Medical/Surgical History: Denies Medical/Surgical History HEENT History: Reports: Other (See Below) Other HEENT History: multiple teeth extracted Musculoskeletal History: Reports: Fracture, Other (See Below) Other Musculoskeletal History: Torn ACL in the right knee in the past treated conservatively without surgery. Psychiatric History: Reports: Anxiety - Past Surgical History HEENT Surgical History: Reports: Oral Surgery, Tonsillectomy Social & Family History - Family History Family Medical History: Noncontributory Cardiac: Reports: Bypass Endocrine/Metabolic: Reports: Diabetes, type II - Tobacco Use Smoking Status *Q: Never Smoker - Caffeine Use Caffeine Use: Reports: Soda - Recreational Drug Use Recreational Drug Use: No - Living Situation & Occupation Living situation: Reports: with Family, Occupation: Employed ED ROS GENERAL - Review of Systems Review Of Systems: See Below Constitutional: Denies: Fever, Chills HEENT: Denies: Dental Pain, Ear Pain, Throat Pain Respiratory: Denies: Shortness of Breath Cardiovascular: Denies: Chest Pain GI/Abdominal: Denies: Abdominal Pain, Nausea, Vomiting Musculoskeletal: Denies: Neck Pain Skin: Denies: Rash Neurological: Reports: Headache - Physical Exam Exam: See Below General Appearance: Alert, No Apparent Distress Eye Exam: Bilateral Eye: PERRL Ears: Normal External Exam Nose: Normal Inspection Throat/Mouth: Other (upper and lower teeth bilat extremely cavitated, mostly down to the gum line bilat. ) Head Exam: Atraumatic, Facial Tenderness (mild tenderness L mid face). No: Scalp Swelling, Scalp Tenderness, Facial Ecchymosis, Facial Swelling, Sinus Tenderness Respiratory/Chest: No Respiratory Distress, Lungs Clear Cardiovascular: Regular Rate, Rhythm Neuro Exam (Abbreviated): Alert, Oriented, No Motor/Sensory Deficits Skin Exam: Warm, Dry, Normal Color, No Rash Course - Vital Signs Last Recorded V/S: Last Vital Signs Temp 98.0 F 05/12/18 16:19 Pulse 98 05/12/18 16:19 Resp 20 05/12/18 16:19 BP 131/89 05/12/18 16:19 Pulse Ox 95 05/12/18 16:19 Departure - Departure Time of Disposition: 17:23 Disposition: Home, Self-Care 01 Condition: Fair Clinical Impression: Infected dental caries Headache Qualifiers: Headache type: unspecified Headache chronicity pattern: acute headache Intractability: not intractable Qualified Code(s): R51 - Headache - Discharge Information Instructions: General Headache Without Cause Referrals: PCP,None [Primary Care Provider] - Forms: ED Department Discharge Additional Instructions: Amoxicillin 1000 mg twice daily for 1 week, you may alternate Tylenol and ibuprofen as discussed for discomfort as needed, your eye doctor as soon as possible, you likely are suffering from some eye strain as well, your vision today was 20/25 both eyes, acceptable but not completely normal. Return to ED as needed if symptoms worsening in any way.
== END 2018-05-12 17:35 | disposition home or self-care (01) ==
LOC: JD.ED 16:02
DX: K04.7 Periapical abscess without sinus (principal); K02.9 Dental caries, unspecified; R51 Headache; Z88.8 Allergy status to other drugs, medicaments and biological substances
CPT/HCPCS: 99284

== ENCOUNTER 2019-07-01 19:37 | Emergency (ER) | payer BC ==
[2019-07-01 19:51] VITALS: BP 135/97; PULSE 87
[2019-07-01] MEDS ORDERED: Ketorolac 60 MG/2 ML SDV IM ONE (19:56)
--- NOTE | 2019-07-01 20:05 | EDM.PDOC ---
ED HPI GENERAL MEDICAL PROBLEM - General Chief Complaint: Back Pain or Injury Stated Complaint: fall back pain Time Seen by Provider: 07/01/19 19:45 Source of Information: Reports: Patient, RN Notes Reviewed History Limitations: Reports: No Limitations - History of Present Illness INITIAL COMMENTS - FREE TEXT/NARRATIVE: Patient is a 33-year-old male who presents to the ED for the evaluation of a fall. Patient states this morning, while walking outside he slipped on some ice and fell on the cement by his apartment. He ended up falling onto that right posterior ribs, and this is where most of his pain is at this time. He states it is bothersome throughout the day, but only took 400 mg ibuprofen at around 4 PM. He states this does help a little bit with the pain, but does not take it away completely. He has not noticed any bruising to the area, and he is not complaining of any shoulder pain/arm pain, neck pain, nor did he hit his head or have any LOC. Right Back Pain Score (Numeric/FACES): 8 - Related Data Allergies Allergy/AdvReac Type Severity Reaction Status Date / Time naproxen Allergy Diarrhea Verified 05/12/18 16:31 Home Meds: Home Meds Hydrocodone/Acetaminophen [Hydrocodon-Acetaminophen 5-325] 1 each PO Q6H PRN # 12 tablet 07/01/19 [Rx] Orphenadrine [Norflex] 100 mg PO BID PRN #14 tab 07/01/19 [Rx] Past Medical History HEENT History: Reports: Other (See Below) Other HEENT History: multiple teeth extracted Musculoskeletal History: Reports: Fracture, Other (See Below) Other Musculoskeletal History: Torn ACL in the right knee in the past treated conservatively without surgery. Psychiatric History: Reports: Anxiety - Past Surgical History HEENT Surgical History: Reports: Oral Surgery, Tonsillectomy Social & Family History - Family History Family Medical History: Noncontributory Cardiac: Reports: Bypass Endocrine/Metabolic: Reports: Diabetes, type II - Tobacco Use Smoking Status *Q: Never Smoker - Caffeine Use Caffeine Use: Reports: Soda - Recreational Drug Use Recreational Drug Use: No - Living Situation & Occupation Living situation: Reports: with Family, Occupation: Employed ED ROS GENERAL - Review of Systems Review Of Systems: Comprehensive ROS is negative, except as noted in HPI. ED EXAM, UPPER BACK/NECK PAIN - Physical Exam Exam: See Below Exam Limited By: No Limitations General Appearance: Alert, WD/WN, No Apparent Distress Eye Exam: Bilateral Eye: EOMI, Normal Inspection, PERRL Ears Exam: Normal External Exam, Normal Canal, Hearing Grossly Normal, Normal TMs Nose Exam: Normal Inspection Throat/Mouth Exam: Normal Inspection, Normal Lips, Normal Teeth, Normal Gums, Normal Oropharynx, Normal Voice, No Airway Compromise Head Exam: Atraumatic, Normocephalic Neck Exam: Non-Tender, Full Range of Motion, Normal Alignment, Normal Inspection Cardiovascular/Respiratory: Regular Rate, Rhythm, No M/R/G, Normal Peripheral Pulses, No JVD, Normal Breath Sounds, No Respiratory Distress GI/Abdominal: Normal Bowel Sounds, Soft, Non-Tender, No Organomegaly, No Distention, No Mass Back Exam: Normal Inspection, Decreased Range of Motion (d/t pain in R posterior ribs, most of his pain is just under the R scapula border) Extremities: Normal Inspection, Normal Range of Motion, Normal Capillary Refill Neurologic: compensation advisor II-XII nml As Tested, No Motor/Sensory Deficits, Alert, Normal Mood/Affect, Oriented x 3 Psychiatric: Normal Affect, Normal Mood Skin Exam: Normal Color, Warm/Dry Course - Vital Signs Last Recorded V/S: Last Vital Signs Temp 97.7 F 07/01/19 19:50 Pulse 87 07/01/19 19:50 Resp 20 07/01/19 19:50 BP 135/97 H 07/01/19 19:50 Pulse Ox 97 07/01/19 19:50 - Orders/Labs/Meds Meds: Medications Discontinued Medications Generic Name Dose Route Start Last Admin Trade Name Jayesh PRN Reason Stop Dose Admin Ketorolac Tromethamine 60 mg 07/01/19 19:56 07/01/19 20:05 Toradol IM 07/01/19 19:57 60 mg ONETIME ONE Administration - Re-Assessments/Exams Free Text/Narrative Re-Assessment/Exam: 07/01/19 20:04 Patient presents to the ED for the evaluation of his right posterior rib pain. I have ordered rib x-rays to be obtained, and will give 60 mg IM Toradol for initial pain management. 07/01/19 20:35 Patient's x-rays demonstrate no discrete rib abnormality, or any other acute processes seen per radiology. At this time it appears the patient has more of a rib contusion, that is causing his pain. I will give him a few tablets of pain medication, but will direct him to take ibuprofen as much as possible and save the opioid pain medications for pain not relieved by ibuprofen alone. Patient will also be sent home with Norflex, as he states it does hurt to bend and move. Departure - Departure Time of Disposition: 20:37 Disposition: Home, Self-Care 01 Condition: Fair Clinical Impression: Contusion Qualifiers: Encounter type: initial encounter Contusion area: thoracic wall Contusion of thoracic wall detail: back wall of thorax Laterality: right Qualified Code(s): S20.221A - Contusion of right back wall of thorax, initial encounter - Discharge Information *PRESCRIPTION DRUG MONITORING PROGRAM REVIEWED*: Yes *COPY OF PRESCRIPTION DRUG MONITORING REPORT IN PATIENT BRENT: No Instructions: Contusion, [id number], Rib Contusion Referrals: Harrison Doan Jr, MD [Primary Care Provider] - Forms: ED Department Discharge, ED Return to Work/School Form Additional Instructions: You have been evaluated in the ED for your right sided rib pain. Your x-ray demonstrated no rib fractures or other bony abnormalities. It is likely that you have a contusion of this area, which is a bruise over the ribs. Please use ice/heat as tolerated to the affected area. You may take Tylenol 500 mg or ibuprofen 600mg q6 hrs for pain relief. Please do so until you have a tolerable level of pain with activity. Do not exceed 4000mg Tylenol or 3200mg ibuprofen in a 24 hour time period. You were given a prescription for a strong pain medication, ( ), please take 1 tab every 6 hours as needed for pain not relieved by Tylenol or ibuprofen alone. Please note this medication does contain Tylenol in it, so do not take more than 4000 mg in a 24-hour time span. These medications can be addictive, so please take as few as possible to achieve adequate pain control. These meds can also be quite constipating, recommend that you increase your oral fluid intake and take a stool softener like MiraLAX while taking these medications. Do not drive while taking this medication. You were also given a prescription for Norflex, please take 1 every 12 hours as needed for further muscle spasms. Please return to ED if your symptoms should change or worsen. Sepsis Event Note - Evaluation Sepsis Screening Result: No Definite Risk - Focused Exam Vital Signs: Vital Signs Temp Pulse Resp BP Pulse Ox 07/01/19 19:50 97.7 F 87 20 135/97 H 97 Date Exam was Performed: 07/01/19 Time Exam was Performed: 20:35
--- NOTE | 2019-07-01 20:31 | CR ---
Chest and right ribs: 3 views of the right ribs were obtained as well as frontal view of the chest. Comparison: No relevant studies were available. Findings: Heart size and mediastinum are normal. Lungs are clear with no acute parenchymal change. No discrete fracture or other bony abnormality is seen. Impression: 1. No discrete rib abnormality. 2. Nothing acute is seen on accompanying chest x-ray. Diagnostic code #1 Study was dictated in MDT
== END 2019-07-01 20:50 | disposition home or self-care (01) ==
LOC: JD.ED 19:37
DX: S20.211A Contusion of right front wall of thorax, initial encounter (principal); Z88.8 Allergy status to other drugs, medicaments and biological substances; Z79.899 Other long term (current) drug therapy; W00.0XXA Fall on same level due to ice and snow, initial encounter
CPT/HCPCS: 71101; 96372; 99283; J1885

== ENCOUNTER 2020-03-28 19:28 | Emergency (ER) | payer SELFPAY ==
[2020-03-28 19:38] VITALS: BP 169/101; PULSE 104
--- NOTE | 2020-03-28 20:08 | EDM.PDOC ---
ED HPI GENERAL MEDICAL PROBLEM - General Chief Complaint: ENT Problem Stated Complaint: right side tooth pain Time Seen by Provider: 03/28/20 19:37 Source of Information: Reports: Patient, RN Notes Reviewed History Limitations: Reports: No Limitations - History of Present Illness INITIAL COMMENTS - FREE TEXT/NARRATIVE: Patient is a 34-year-old male who presents to the ED for his dental complaint. Patient notes for the last 2 days, he has been having discomfort to a tooth on his right lower jaw. Patient notes he is currently working with [facility] in [place] to have all of his teeth removed, due to their poor dentition. He has not had any fevers or chills, but he has noted some swelling to his right cheek. He notes that it is kind of painful to chew so is not really been eating a lot of hard foods. He denies any other sick-like symptoms cough/shortness of breath, nausea/vomiting/diarrhea, he states he has no sore throat. He did take some ibuprofen earlier today, but this provided no relief. Right Upper Tooth/Teeth Pain Score (Numeric/FACES): 9 - Related Data Allergies Allergy/AdvReac Type Severity Reaction Status Date / Time naproxen Allergy Diarrhea Verified 03/28/20 19:38 Home Meds: Home Meds Amoxicillin/Clavulanate K [Augmentin 875-125 MG] 1 tab PO BID #20 tablet 03/28/20 [Rx] Hydrocodone/Acetaminophen [Hydrocodone-Acetamin 5-325 mg] 1 each PO Q6H PRN #12 tablet 03/28/20 [Rx] Past Medical History HEENT History: Reports: Other (See Below) Other HEENT History: multiple teeth extracted Musculoskeletal History: Reports: Fracture, Other (See Below) Other Musculoskeletal History: Torn ACL in the right knee in the past treated conservatively without surgery. Psychiatric History: Reports: Anxiety - Past Surgical History HEENT Surgical History: Reports: Oral Surgery, Tonsillectomy Social & Family History - Family History Family Medical History: No Pertinent Family History Cardiac: Reports: Bypass Endocrine/Metabolic: Reports: Diabetes, type II - Tobacco Use Tobacco Use Status *Q: Never Tobacco User - Caffeine Use Caffeine Use: Reports: Soda - Recreational Drug Use Recreational Drug Use: No - Living Situation & Occupation Living situation: Reports: with Family, Occupation: Employed ED ROS ENT - Review of Systems Review Of Systems: Comprehensive ROS is negative, except as noted in HPI. ED EXAM, ENT - Physical Exam Exam: See Below Exam Limited By: No Limitations General Appearance: Alert, WD/WN, No Apparent Distress Mouth/Throat: Normal Lips, Normal Oropharynx, Dental Pain (to right lower molar, all teeth are in very poor repair, multiple cavities are noted with erythema at gum line) Head: Atraumatic, Normocephalic, Facial Swelling (mild to right cheek) Respiratory/Chest: No Respiratory Distress, Lungs Clear, Normal Breath Sounds, No Accessory Muscle Use, Chest Non-Tender Cardiovascular: Normal Peripheral Pulses, Regular Rate, Rhythm, No Murmur Neurological: Alert, Oriented, Normal Cognition, No Motor/Sensory Deficits Psychiatric: Normal Affect, Normal Mood Skin: Warm, Dry, Intact, Normal Color, No Rash Course - Vital Signs Last Recorded V/S: Last Vital Signs Temp 98.3 F 03/28/20 19:36 Pulse 104 H 03/28/20 19:36 Resp 16 03/28/20 19:36 BP 169/101 H 03/28/20 19:36 Pulse Ox 96 03/28/20 19:36 - Re-Assessments/Exams Free Text/Narrative Re-Assessment/Exam: 03/28/20 20:06 Patient presents to the ED for his dental complaint. We will get him on some antibiotics and a few pain meds while antibiotics to take time to kick in. He will call [facility] sometime on Monday to arrange treatment Departure - Departure Time of Disposition: 20:06 Disposition: Home, Self-Care 01 Condition: Good Clinical Impression: Infected dental caries - Discharge Information *PRESCRIPTION DRUG MONITORING PROGRAM REVIEWED*: Yes *COPY OF PRESCRIPTION DRUG MONITORING REPORT IN PATIENT BRENT: No Prescriptions: Amoxicillin/Clavulanate K [Augmentin 875-125 MG] 1 tab PO BID #20 tablet Hydrocodone/Acetaminophen [Hydrocodone-Acetamin 5-325 mg] 1 each PO Q6H PRN #12 tablet PRN Reason: Pain Instructions: Preventive Dental Care, Adult Additional Instructions: You have been evaluated in the ED for your dental pain. You have been provided with a script for Augmentin. Please take this medication as directed. Please note this antibiotic can take up to 48 hours to provide coverage. If you do not notice an improvement in the swelling within 3 days time I recommend you seek care for reevaluation for change in antibiotics. This antibiotic can cause diarrhea, recommend that you start a probiotic while taking this medication. You were given a prescription for a strong pain medication, hydrocodone/acetaminophen 5/325 mg, please take 1 tab every 6 hours as needed for pain not relieved by Tylenol or ibuprofen alone. Please note this me dication does contain Tylenol in it, so do not take more than 4000 mg in a 24- hour time span. These medications can be addictive, so please take as few as possible to achieve adequate pain control. These meds can also be quite constipating, recommend that you increase your oral fluid intake and take a stool softener like MiraLAX while taking these medications. Do not drive while taking this medication. You may use hot pack/ ice packs to the affected area as tolerated in 15-20 minute intervals. Please call [facility] on Monday AM and tell them you were started on antibiotics at today's ED visit. Please return to the ED if your symptoms change or worsen. Sepsis Event Note (ED) - Evaluation Sepsis Screening Result: No Definite Risk - Focused Exam Vital Signs: Vital Signs Temp Pulse Resp BP Pulse Ox 03/28/20 19:36 98.3 F 104 H 16 169/101 H 96
== END 2020-03-28 20:15 | disposition home or self-care (01) ==
LOC: JD.ED 19:28
DX: K04.7 Periapical abscess without sinus (principal); K02.9 Dental caries, unspecified; Z88.6 Allergy status to analgesic agent
CPT/HCPCS: 99282; 99283

== ENCOUNTER 2020-08-30 03:44 | Emergency (ER) | payer SELFPAY ==
[2020-08-30 04:01] VITALS: PULSE 91
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
--- NOTE | 2020-08-31 08:55 | CR ---
Chest: 2 views of the chest are obtained. Comparison: Prior chest x-ray obtained during rib exam dated 07/01/19. Heart size and mediastinum are within normal limits. Lungs are clear with no acute parenchymal change being seen. Bony structures are within normal limits for the patient's age. Impression: 1. Nothing acute is seen on 2 view chest x-ray. Diagnostic code #1
== END 2020-08-30 05:14 | disposition home or self-care (01) ==
LOC: JD.ED 03:44
DX: S29.9XXA Unspecified injury of thorax, initial encounter (principal); Z88.8 Allergy status to other drugs, medicaments and biological substances; X58.XXXA Exposure to other specified factors, initial encounter
CPT/HCPCS: 71046; 71046-26; 93005; 93010; 99283; 99283-25

== ENCOUNTER 2020-10-17 08:46 | Emergency (ER) | payer SELFPAY ==
[2020-10-17 08:55] VITALS: BP 102/65; PULSE 70
--- NOTE | 2020-10-17 09:51 | EDM.PDOC ---
ED HPI GENERAL MEDICAL PROBLEM - General Chief Complaint: Lower Extremity Injury/Pain Stated Complaint: L ANKLE PAIN Time Seen by Provider: 10/17/20 09:10 Source of Information: Reports: Patient History Limitations: Reports: No Limitations - History of Present Illness INITIAL COMMENTS - FREE TEXT/NARRATIVE: The patient presents with left ankle pain. He said last night about 1am he stepped wrong and twisted his left ankle. He has no other injuries. He can walk on it but it hurts. Onset: Sudden Duration: Hour(s): (1am) Location: Reports: Lower Extremity, Left (ankle) Quality: Reports: Sharp Severity: Moderate Improves with: Reports: Immobilization Worsens with: Reports: Movement Context: Reports: Trauma (twisted his ankle) Associated Symptoms: Reports: No Other Symptoms Left Ankle Pain Score (Numeric/FACES): 6 - Related Data Allergies Allergy/AdvReac Type Severity Reaction Status Date / Time naproxen AdvReac Severe Diarrhea Verified 10/17/20 08:55 Home Meds: Home Meds Escitalopram [Lexapro] 0 mg PO DAILY 10/17/20 [History] traZODone 50 mg PO BEDTIME 10/17/20 [History] Past Medical History - Past Health History Medical/Surgical History: Denies Medical/Surgical History HEENT History: Reports: Other (See Below) Other HEENT History: multiple teeth extracted Musculoskeletal History: Reports: Fracture, Other (See Below) Other Musculoskeletal History: Torn ACL in the right knee in the past treated conservatively without surgery. Psychiatric History: Reports: Anxiety - Past Surgical History HEENT Surgical History: Reports: Oral Surgery, Tonsillectomy Social & Family History - Family History Family Medical History: No Pertinent Family History Cardiac: Reports: Bypass Endocrine/Metabolic: Reports: Diabetes, type II - Tobacco Use Tobacco Use Status *Q: Never Tobacco User - Caffeine Use Caffeine Use: Reports: Soda - Recreational Drug Use Recreational Drug Use: No - Living Situation & Occupation Living situation: Reports: with Family, Occupation: Employed Review of Systems - Review of Systems Review Of Systems: See Below Constitutional: Reports: No Symptoms Eyes: Reports: No Symptoms Ears: Reports: No Symptoms Nose: Reports: No Symptoms Mouth/Throat: Reports: No Symptoms Respiratory: Reports: No Symptoms Cardiovascular: Reports: No Symptoms GI/Abdominal: Reports: No Symptoms Genitourinary: Reports: No Symptoms Musculoskeletal: Reports: Other (left ankle pain) ED EXAM, GENERAL - Physical Exam Exam: See Below Exam Limited By: No Limitations General Appearance: Alert, No Apparent Distress Ears: Normal External Exam Nose: Normal Inspection Head: Atraumatic, Normocephalic Neck: Normal Inspection Respiratory/Chest: No Respiratory Distress Extremities: Other (Left ankle pain with palpation mostly to the lateral ankle and mild edema. Good sensation and pulses distally) Course - Vital Signs Last Recorded V/S: Last Vital Signs Temp 97 F 10/17/20 08:53 Pulse 70 10/17/20 08:53 Resp 16 10/17/20 08:53 BP 102/65 10/17/20 08:53 Pulse Ox 93 L 10/17/20 08:53 - Orders/Labs/Meds Orders: Active Orders 24 hr Category Date Time Status Ankle Min 3V Lt [CR] Stat Exams 10/17/20 09:11 Taken Durable Medical Equipment for Discharge [DME for Oth 10/17/20 09:45 Ordered Discharge] [COMM] Stat - Re-Assessments/Exams Free Text/Narrative Re-Assessment/Exam: 10/17/20 09:48 I ordered an x-ray and it was negative for fracture. He has a sprain. I will put him in a walking boot to secure his ankle to avoid further injury. Departure - Departure Time of Disposition: 09:50 Disposition: Home, Self-Care 01 Condition: Good Clinical Impression: Left ankle sprain Qualifiers: Encounter type: initial encounter Involved ligament of ankle: unspecified ligament Qualified Code(s): S93.402A - Sprain of unspecified ligament of left ankle, initial encounter - Discharge Information *PRESCRIPTION DRUG MONITORING PROGRAM REVIEWED*: Not Applicable *COPY OF PRESCRIPTION DRUG MONITORING REPORT IN PATIENT BRENT: Not Applicable Referrals: Gold Angulo MD [Primary Care Provider] - 1 Week Additional Instructions: Ice your ankle for 15 minutes 3 times per day. Try to elevate your ankle above your heart as much as you can for 2 days. Take tylenol or motrin as needed for pain. Wear the walking boot to avoid further injury. Please return if you are worse. Sepsis Event Note (ED) - Evaluation Sepsis Screening Result: No Definite Risk - Focused Exam Vital Signs: Vital Signs Temp Pulse Resp BP Pulse Ox 10/17/20 08:53 97 F 70 16 102/65 93 L - My Orders Last 24 Hours: My Active Orders 10/17/20 09:11 Ankle Min 3V Lt [CR] Stat 10/17/20 09:45 Durable Medical Equipment for Discharge [DME for Discharge] [COMM] Stat - Assessment/Plan Last 24 Hours: My Active Orders 10/17/20 09:11 Ankle Min 3V Lt [CR] Stat 10/17/20 09:45 Durable Medical Equipment for Discharge [DME for Discharge] [COMM] Stat
--- NOTE | 2020-10-18 11:48 | CR ---
Left ankle: 4 views of the left ankle were obtained. Comparison: No prior ankle study is available. Ankle mortise is symmetric. Minimal concavity of the talar dome is seen with one view showing minimal lucency. Difficult to exclude minimal acute change. MRI would be needed to confirm if clinically necessary. No additional fracture or other bony abnormality is appreciated. Impression: 1. Equivocal finding within the talar dome as described above. 2. Left ankle study is otherwise unremarkable. Diagnostic code #3
== END 2020-10-17 10:05 | disposition home or self-care (01) ==
LOC: JD.ED 08:46
DX: S93.402A Sprain of unspecified ligament of left ankle, initial encounter (principal); R60.0 Localized edema; Z88.5 Allergy status to narcotic agent; X50.1XXA Overexertion from prolonged static or awkward postures, initial encounter
CPT/HCPCS: 73610-26-LT; 73610-LT; 99282; 99283-25

== ENCOUNTER 2020-10-23 04:14 | Emergency (ER) | payer SELFPAY ==
[2020-10-23 04:28] VITALS: BP 123/76; PULSE 96
--- NOTE | 2020-10-23 05:46 | EDM.PDOC ---
ED HPI GENERAL MEDICAL PROBLEM - General Chief Complaint: Chest Pain Stated Complaint: RIB PAIN Time Seen by Provider: 10/23/20 04:25 Source of Information: Reports: Patient, Old Records (ED visit 10/17/2020) History Limitations: Reports: No Limitations - History of Present Illness INITIAL COMMENTS - FREE TEXT/NARRATIVE: Mr. Paiz is a very pleasant 35-year-old gentleman, who, medical records indicate, was seen in this ED on 10/17/2020 for a left ankle injury. He reported at that time that he had missed-stepped, and twisted his left ankle earlier that morning. He denied any other injuries. Work-up included x-rays of the left ankle, which were negative. He was diagnosed with a sprained ankle and placed into a CAM walker boot before being discharged home with the recommendation that he ice and elevate his left ankle is much as possible for 2 days, to help minimize swelling, and take [id number] Tylenol or ibuprofen as needed for discomfort. The patient now returns the ED stating that when he missed-stepped on 10/17/2020, he actually fell, striking his left ribs. He states that he did not develop left rib pain until after he left the ED on 10/17/2020, and that he has been experiencing left rib pain ever since. He states that he does not have significant left rib pain if he is lying on his back, but that it is much worse if he lies on his left side, twists, or takes a deep breath. He has been taking OTC ibuprofen, without adequate relief. He has not spoken to his PCP about this. Here in the ED today, the patient is found to be hemodynamically stable, afebrile, saturating 96% on room air. He appears to be comfortable, even with his left arm raised above his head. He is in no acute distress. He is still wearing the CAM walker boot. Other than his left rib and left ankle pain, the patient denies having a recent fever, chills, sore throat, ear pain, nasal or sinus congestion, cough, dyspnea, palpitations, nausea, vomiting, constipation, diarrhea, abdominal pain, urinary symptoms, recent weight gain or weight loss, recent bloody bowel movements or black bowel movements, headaches, or rashes. The patient's PCP is Dr. Gold Kev. ribs Pain Score (Numeric/FACES): 8 - Related Data Allergies Allergy/AdvReac Type Severity Reaction Status Date / Time naproxen AdvReac Severe Diarrhea Verified 10/23/20 04:23 Home Meds: Home Meds Escitalopram [Lexapro] 0 mg PO DAILY 10/17/20 [History] traZODone 50 mg PO BEDTIME 10/17/20 [History] LORazepam [Ativan] 0.5 mg PO Q8H PRN 10/23/20 [History] Past Medical History Psychiatric History: Reports: Anxiety, Other (See Below) (Insomnia) - Past Surgical History HEENT Surgical History: Reports: Oral Surgery (dental extractions), Tonsillectomy Social & Family History - Tobacco Use Tobacco Use Status *Q: Former Tobacco User Years of Tobacco use: 2 Packs/Tins Daily: 1 Tobacco Use Comment: Smoked from 2001 to 2003 - Caffeine Use Caffeine Use: Reports: Soda - Alcohol Use Alcohol Use History: Yes Days Per Week of Alcohol Use: 7 Number of Drinks Per Day: 2 Total Drinks Per Week: 14 Alcohol Use Frequency: Daily - Recreational Drug Use Recreational Drug Use: No - Living Situation & Occupation Living situation: Reports: , with Family (Mother + niece) Occupation: Employed ([employer]) ED ROS GENERAL - Review of Systems Review Of Systems: Comprehensive ROS is negative, except as noted in HPI. ED EXAM, GENERAL - Physical Exam Exam: See Below Exam Limited By: No Limitations General Appearance: Alert, WD/WN, No Apparent Distress Eye Exam: Bilateral Eye: EOMI, Normal Inspection Ears: Normal External Exam, Hearing Grossly Normal Nose: Normal Inspection Throat/Mouth: Normal Inspection, Normal Lips, Normal Voice, No Airway Compromise Head: Atraumatic, Normocephalic Neck: Normal Inspection, Full Range of Motion Respiratory/Chest: No Respiratory Distress, Lungs Clear, Normal Breath Sounds, No Accessory Muscle Use, Other (No visible abnormalities to the patient's left ribs, such as swelling, erythema, ecchymosis, or abrasion. Mild tenderness to palpation of the left ribs.). No: Decreased Breath Sounds, Crackles, Rhonchi, Wheezing, Stridor, Pleural Rub, Prolonged Expiration Cardiovascular: Normal Peripheral Pulses, Regular Rate, Rhythm, No Edema, No Gallop, No JVD, No Murmur, No Rub Peripheral Pulses: 3+: Radial (L), Radial (R) GI/Abdominal: Normal Bowel Sounds, Soft, Non-Tender, No Organomegaly, No Distention, No Abnormal Bruit, No Mass Back Exam: Normal Inspection, Full Range of Motion, NT Extremities: Normal Range of Motion, No Pedal Edema, Normal Capillary Refill, Other (left leg in CAM walker boot) Neurological: Alert, Oriented, Normal Cognition, No Motor/Sensory Deficits Psychiatric: Normal Affect Skin Exam: Warm, Dry, Intact, Normal Color, No Rash Course - Vital Signs Last Recorded V/S: Last Vital Signs Temp 36.1 C 10/23/20 04:24 Pulse 96 10/23/20 04:24 Resp 15 10/23/20 04:24 BP 123/76 10/23/20 04:24 Pulse Ox 96 10/23/20 04:24 - Orders/Labs/Meds Orders: Active Orders 24 hr Category Date Time Status Chest 2V [CR] Stat Exams 10/23/20 05:45 Taken Labs: Laboratory Tests 10/23/20 10/23/20 Range/Units 05:58 05:58 D-Dimer, Quantitative 0.30 (0.19-0.50) mg/L Sodium 140 (136-145) mEq/L Potassium 3.9 (3.5-5.1) mEq/L Chloride 103 (98-107) mEq/L Carbon Dioxide 24 (21-32) mEq/L Anion Gap 16.9 H (5-15) BUN 11 (7-18) mg/dL Creatinine 1.0 (0.7-1.3) mg/dL Est Cr Clr Drug Dosing TNP Estimated GFR (MDRD) > 60 (>60) mL/min BUN/Creatinine Ratio 11.0 L (14-18) Glucose 87 (70-99) mg/dL Calcium 8.5 (8.5-10.1) mg/dL - Re-Assessments/Exams Free Text/Narrative Re-Assessment/Exam: 10/23/20 05:46 There was a delay in evaluating the patient due to an emergency that I needed to attend to. As above, the patient was seen in this ED on 10/17/2020 with a complaint at that time of left ankle pain, after he twisted his left ankle when he stepped wrong. He denied at that time any other injuries. Work-up included x-rays of his left ankle which were negative. He was diagnosed with a sprained ankle, fitted for a CAM walker boot, and discharged home with the recommendation that he ice and elevate his left ankle for 2 days, and take Tylenol or ibuprofen as needed for discomfort. The patient now returns to the ER stating that when he injured his ankle, he actually fell onto his left ribs, and that he developed left rib pain just after leaving the ED on 10/17/2020. He states that his pain is made worse if he lies on his left side, twists, or takes deep breaths. He states that he has been taking ibuprofen, without adequate relief. He has not seen his PCP in this regard. On examination, there is no visible abnormality, such as ecchymosis, erythema, or swelling, to his left ribs, and the patient has only mild tenderness to palpation. There is no rub to the area on auscultation. I have ordered a BMP (to check his renal function ), a D-dimer, and two-view chest x-ray. 10/23/20 06:16 Two-view chest radiograph appears to be grossly normal. The cardiac silhouette is within normal limits. No pulmonary vascular congestion. No pleural effusions. No focal infiltrate. No pneumothorax. Formal read per the Radiologist pending. 10/23/20 06:42 The patient's BMP is remarkable for an anion gap slightly elevated at 16.9, but with a bicarbonate normal at 24, and the remainder of his BMP being unremarkable. His D-dimer is within normal limits at 0.30. 10/23/20 06:47 Test results discussed with the patient. I explained that he likely has a mild contusion or strain to his left chest. It should get better on its own. Ibuprofen is adequate for pain relief. The patient is satisfied with that. With respect to the patient's left ankle, since it has been a week, I recommended that he come out of the CAM walker boot now. He should expect to have some discomfort, but if he continues to have pain for another week, he should follow-up with an Orthopedic Surgeon. Departure - Departure Time of Disposition: 06:51 Disposition: Home, Self-Care 01 Condition: Good Clinical Impression: Rib pain on left side - Discharge Information *PRESCRIPTION DRUG MONITORING PROGRAM REVIEWED*: Not Applicable *COPY OF PRESCRIPTION DRUG MONITORING REPORT IN PATIENT BRENT: Not Applicable Referrals: Gold Angulo MD [Primary Care Provider] - Forms: ED Department Discharge Additional Instructions: You were seen in the emergency room for left rib pain after falling on 10/17/2020. Work-up in the ER included some blood tests and a chest x-ray. Your entire work-up was unremarkable. You do not have any broken ribs. You do not have a blood clot in your lungs. Based on your history, physical exam, and ER tests, you have likely strained some of the connective tissue of your left ribs. We recommend that you take [id number] ibuprofen, 3 tablets (600 mg) up to every 8 hours, with food, as needed for discomfort. With respect to your left ankle, since it has been a week, you may come out of the CAM walker boot and ambulate on your own as tolerated. You should expect to have some discomfort, however, if you continue to have left ankle pain after another week, please follow-up with the Orthopedic Surgeon. If any other problems, please do not hesitate to return to the ER. Sepsis Event Note (ED) - Evaluation Sepsis Screening Result: No Definite Risk - Focused Exam Vital Signs: Vital Signs Temp Pulse Resp BP Pulse Ox 10/23/20 04:24 36.1 C 96 15 123/76 96 - My Orders Last 24 Hours: My Active Orders 10/23/20 05:45 Chest 2V [CR] Stat - Assessment/Plan Last 24 Hours: My Active Orders 10/23/20 05:45 Chest 2V [CR] Stat
--- NOTE | 2020-10-23 08:03 | CR ---
Chest: 2 views of the chest were obtained. Comparison: Prior chest x-ray of 08/30/20. Heart size and mediastinum are normal. Lungs are clear with no acute parenchymal change. Bony structures appear within normal limits for the patient's age. Impression: 1. Nothing acute is appreciated on 2 view chest x-ray. Diagnostic code #1
== END 2020-10-23 07:11 | disposition home or self-care (01) ==
LOC: JD.ED 04:14
DX: R07.81 Pleurodynia (principal); Z87.891 Personal history of nicotine dependence; Z88.5 Allergy status to narcotic agent; W18.09XA Striking against other object with subsequent fall, initial encounter
CPT/HCPCS: 36415; 71046; 71046-26; 80048; 85379; 99283; 99283-25

== ENCOUNTER 2020-12-10 06:43 | Emergency (ER) | payer SELFPAY ==
[2020-12-10 06:54] VITALS: BP 132/94; PULSE 64
--- NOTE | 2020-12-10 07:07 | EDM.PDOC ---
ED HPI GENERAL MEDICAL PROBLEM - General Chief Complaint: Neurological Problem Stated Complaint: LIGHTHEADED/BALANCE ISSUES Time Seen by Provider: 12/10/20 06:57 Source of Information: Reports: Patient History Limitations: Reports: No Limitations - History of Present Illness INITIAL COMMENTS - FREE TEXT/NARRATIVE: 35-year-old male presents to the ED with vertigo symptoms since early Monday. He believes he woke up with the symptoms. He has had no recent closed head trauma. Denies any nasal congestion sinus congestion or upper respiratory tract infection. No change in hearing. He appreciates vertigo symptoms are worse when lying flat in bed and then achieving an upright position. Appreciates it with looking upwards at times and also looking towards the left at times. This makes him offkilter having to take an extra step with walking. At no time is he felt nauseated or vomited. Symptoms usually get better as soon as he holds still. Denies any associated headache. No increased tinnitus or loss of hearing. No past history of vertigo symptoms. Current medications that he is on have been present for many months. 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: Reports: Other (see below) (None.) - Related Data Allergies Allergy/AdvReac Type Severity Reaction Status Date / Time naproxen AdvReac Mild Diarrhea Verified 12/10/20 06:52 Home Meds: Home Meds Escitalopram [Lexapro] 0 mg PO DAILY 10/17/20 [History] traZODone 50 mg PO BEDTIME 10/17/20 [History] LORazepam [Ativan] 0.5 mg PO Q8H PRN 10/23/20 [History] Meclizine [Antivert] 25 mg PO Q8H #15 tablet 12/10/20 [Rx] Past Medical History - Past Health History Medical/Surgical History: Denies Medical/Surgical History HEENT History: Reports: Other (See Below) Other HEENT History: multiple teeth extracted Musculoskeletal History: Reports: Fracture, Other (See Below) Other Musculoskeletal History: Torn ACL in the right knee in the past treated conservatively without surgery. Psychiatric History: Reports: Anxiety, Other (See Below) (Insomnia) - Past Surgical History HEENT Surgical History: Reports: Oral Surgery (dental extractions), Tonsillectomy Social & Family History - Family History Family Medical History: No Pertinent Family History Cardiac: Reports: Bypass Endocrine/Metabolic: Reports: Diabetes, type II - Caffeine Use Caffeine Use: Reports: Soda - Living Situation & Occupation Living situation: Reports: , with Family (Mother + niece) Occupation: Employed ([employer]) ED ROS GENERAL - Review of Systems Review Of Systems: See Below Constitutional: Denies: Fever, Chills, Malaise, Weakness, Fatigue, Decreased Appetite, Weight Loss HEENT: Reports: Vertigo. Denies: Eye Pain, Glasses, Hearing Loss Respiratory: Reports: No Symptoms Cardiovascular: Reports: No Symptoms Endocrine: Reports: No Symptoms GI/Abdominal: Reports: No Symptoms : Reports: No Symptoms Musculoskeletal: Reports: No Symptoms Skin: Reports: No Symptoms Neurological: Reports: No Symptoms Psychiatric: Reports: Anxiety, Depression Hematologic/Lymphatic: Reports: No Symptoms Immunologic: Reports: No Symptoms ED EXAM, DIZZINESS - Physical Exam Exam: See Below Exam Limited By: No Limitations General Appearance: Alert, WD/WN, No Apparent Distress, Other (Temperature is 35.8 degrees. Heart rate 64 and sinus respiratory 17 with O2 sats of 97% room air. BP 1 3294 but it came down to 126/84.) Eye Exam: Right Eye: Nystagmus (Sustained nystagmus on right lateral upward gaze.), Bilateral Eye: Normal Inspection, PERRL Nystagmus: worsens with head to L, reproducible, short duration Ears: Normal External Exam, Normal Canal, Hearing Grossly Normal, Normal TMs Throat/Mouth: Normal Inspection, Normal Lips, Normal Teeth, Normal Oropharynx, Other Head Exam: Atraumatic (Uvula is in the midline.), Normocephalic Vertigo: worsens with head to L Neck: Normal Inspection, Supple, Non-Tender, Full Range of Motion. No: Carotid Bruit, Lymphadenopathy (L), Lymphadenopathy (R) Respiratory/Chest: No Respiratory Distress, Lungs Clear, Normal Breath Sounds, No Accessory Muscle Use Cardiovascular: Normal Peripheral Pulses, Regular Rate, Rhythm, No Edema, No Gallop, No Murmur, No Rub Neurological: Alert, Normal Mood/Affect, Normal Dorsiflexion, CN II-XII Intact, Normal Plantar Flexion, Normal Gait, Normal Reflexes, No Motor/Sensory Deficits, Oriented x 3, Other (Normal rapid alternating movements. No pronator drift.). No: Abnormal Finger to Nose, Abnormal Motor, Difficulty Walking Back Exam: Normal Inspection, Full Range of Motion. No: CVA Tenderness (L), CVA Tenderness (R) Extremities: Normal Inspection, Normal Range of Motion, Non-Tender, No Pedal Edema Psychiatric: Normal Affect, Normal Mood Skin Exam: Warm, Dry, Intact, Normal Color, No Rash Course - Vital Signs Last Recorded V/S: Last Vital Signs Temp 35.8 C L 12/10/20 06:52 Pulse 64 12/10/20 06:52 Resp 17 12/10/20 06:52 BP 132/94 H 12/10/20 06:52 Pulse Ox 97 12/10/20 06:52 - Orders/Labs/Meds Meds: Medications Discontinued Medications Generic Name Dose Route Start Last Admin Trade Name Freq PRN Reason Stop Dose Admin Metoclopramide HCl 7.5 mg 12/10/20 07:08 Metoclopramide 10 Mg/2 Ml Sdv IVPUSH 12/10/20 07:09 ONETIME ONE - Radiology Interpretation Free Text/Narrative:: 35-year-old male presents to the ED for evaluation of feeling of being off balance for the last 3 days. States he awoke with symptoms on MondayDecember 07. He appreciates improvement with rest. Worsening of symptoms when lying down and rolling to his left side. No associated nausea or vomiting. Exam reveals sustained nystagmus on looking to the right and upwards. Cranial nerves are otherwise intact. Normal rapid alternating movements and [id number] assessment. Ears are normal with no fluid or debris in the canals. Plan he will be placed on Reglan 7.5 mg by mouth now. Prescription written for Antivert 25 mg to be taken every 8 hours for the next 5 days. Note given to excuse him from climbing in the workplace staying on ground level until vertigo symptoms improved. Departure - Departure Time of Disposition: 07:07 Disposition: Home, Self-Care 01 Condition: Fair Clinical Impression: Benign paroxysmal vertigo of right ear - Discharge Information *PRESCRIPTION DRUG MONITORING PROGRAM REVIEWED*: Not Applicable *COPY OF PRESCRIPTION DRUG MONITORING REPORT IN PATIENT BRENT: Not Applicable Prescriptions: Meclizine [Antivert] 25 mg PO Q8H #15 tablet Instructions: How to Perform the King Maneuver, Benign Positional Vertigo Referrals: Gold Angulo MD [Primary Care Provider] - Forms: ED Department Discharge, ED Return to Work/School Form Additional Instructions: Evaluation in the emergency room this morning in regards to recurrent bouts of vertigo for the last 3-1/2 days. Examination reveals it is the right side labyrinth that is not working properly. Symptoms occur with movement of your head or neck with a feeling of being off balance or missing a step and if it persist longer than 30 seconds or more it may cause nausea and vomiting. The remainder of your neurological examination was completely normal. Treatment sta rted in the ED was Reglan 7.5 mg by mouth . You will need to peanut picker a prescription for Antivert or meclizine 25 mg tablets to take 1 every 8 hours for the next 5 days for vertigo symptoms. If not completely back to normal in 6 to 7 days time you should be reviewed. Sepsis Event Note (ED) - Evaluation Sepsis Screening Result: No Definite Risk - Focused Exam Vital Signs: Vital Signs Temp Pulse Resp BP Pulse Ox 12/10/20 06:52 35.8 C L 64 17 132/94 H 97
[2020-12-10] MEDS ORDERED: Metoclopramide 10 MG/2 ML SDV IVPUSH ONE (07:08)
[2020-12-10] MEDS ORDERED: Metoclopramide 10 MG Tab PO ONE (07:17)
== END 2020-12-10 07:34 | disposition home or self-care (01) ==
LOC: JD.ED 06:43
DX: H81.11 Benign paroxysmal vertigo, right ear (principal); Z88.5 Allergy status to narcotic agent
CPT/HCPCS: 99283; A9270

== ENCOUNTER 2021-01-21 22:19 | Emergency (ER) | payer SELFPAY ==
[2021-01-21 22:35] VITALS: BP 145/89; PULSE 80
[2021-01-21] MEDS ORDERED: Proparacaine 0.5% Ophth Soln 15 ML Bottle EYEBOTH ONE (22:44)
[2021-01-21] MEDS ORDERED: Fluorescein 1 MG Ophth Strip EYERT ONE (22:44)
--- NOTE | 2021-01-21 23:09 | EDM.PDOC ---
ED HPI GENERAL MEDICAL PROBLEM - General Chief Complaint: Eye Problems Stated Complaint: SOMETHING IN RIGHT EYE Time Seen by Provider: 01/21/21 22:45 - History of Present Illness INITIAL COMMENTS - FREE TEXT/NARRATIVE: Injury occurred about 1700 this afternoon while he was working He was cutting an exhaust pipe from a car using a saw when he got something in the eye States he was wearing safety glasses Complains of foreign body sensation with mild discomfort This is demonstrated to the medial canthus of the right eye Denies visual impairment or significant eye pain He does not wear corrective lenses Right Eye Pain Score (Numeric/FACES): 8 - Related Data Allergies Allergy/AdvReac Type Severity Reaction Status Date / Time naproxen AdvReac Mild Diarrhea Verified 01/21/21 22:35 Home Meds: Home Meds Escitalopram [Lexapro] 0 mg PO DAILY 10/17/20 [History] traZODone 50 mg PO BEDTIME 10/17/20 [History] LORazepam [Ativan] 0.5 mg PO Q8H PRN 10/23/20 [History] Meclizine [Antivert] 25 mg PO Q8H #15 tablet 12/10/20 [Rx] Past Medical History - Past Health History Medical/Surgical History: Denies Medical/Surgical History HEENT History: Reports: Other (See Below) Other HEENT History: multiple teeth extracted Musculoskeletal History: Reports: Fracture, Other (See Below) Other Musculoskeletal History: Torn ACL in the right knee in the past treated co nservatively without surgery. Psychiatric History: Reports: Anxiety - Past Surgical History HEENT Surgical History: Reports: Oral Surgery, Tonsillectomy Social & Family History - Family History Family Medical History: No Pertinent Family History Cardiac: Reports: Bypass Endocrine/Metabolic: Reports: Diabetes, type II - Tobacco Use Tobacco Use Status *Q: Unknown Ever Used Tobacco - Caffeine Use Caffeine Use: Reports: Soda - Living Situation & Occupation Living situation: Reports: , with Family (Mother + niece) Occupation: Employed ([employer]) ED ROS GENERAL - Review of Systems Review Of Systems: See Below Free Text/Narrative/Comment: Constitutional - no activity change Eyes - foreign body sensation right eye; no visual disturbance ENT - no epistaxis Gastrointestinal - no nausea; no vomiting Neurological - no headache; no speech disturbance; no weakness; gait intact ED EXAM GENERAL W FULL EYE - Physical Exam Exam: See Below Text/Narrative:: Constitutional - awake; alert; no acute distress; alcohol odor on breath; limited verbal response Head - no facial swelling or weakness Eyes: - extra ocular motion intact; pupils equal and reactive to light; visual acuity noted - right eye: mild conjunctival injection; fluorescein uptake negative; no corneal foreign body; anterior chamber quiet ENT - no nasal deformity; no epistaxis; normal phonation Neck - no swelling Respiratory - normal respiratory effort Musculoskeletal - grossly normal strength and motion Skin - warm; dry Neurologic - speech grossly intact; no weakness; gait intact Psychiatric - normal mood and affect; memory and attention fair Course - Vital Signs Text/Narrative:: . Considered etiologies included: eye pain, conjunctivitis, corneal abrasion, corneal foreign body Symptoms and examination were discussed Eye examination was completed using slit-lamp There were no findings for abrasion or foreign body Irritation from resolved foreign body was felt likely Patient was provided reassurance regarding current findings Primary care and/or eye care provider follow-up was advised Patient was felt to be stable for outpatient follow-up Return precautions were provided Last Recorded V/S: Last Vital Signs Temp 36.9 C 01/21/21 22:33 Pulse 80 01/21/21 22:33 Resp 18 01/21/21 22:33 BP 145/89 H 01/21/21 22:33 Pulse Ox 100 01/21/21 22:33 - Orders/Labs/Meds Meds: Medications Discontinued Medications Generic Name Dose Route Start Last Admin Trade Name Jayesh PRN Reason Stop Dose Admin Fluorescein Sodium 1 mg 01/21/21 22:44 01/21/21 23:02 Fluorescein 1 Mg Ophth Strip EYERT 01/21/21 22:45 1 mg ONETIME ONE Administration Proparacaine HCl 1 ml 01/21/21 22:44 01/21/21 23:02 Proparacaine 0.5% Ophth Soln 15 Ml Bottle EYEBOTH 01/21/21 22:45 1 drop ONETIME ONE Administration Departure - Departure Time of Disposition: 23:09 Disposition: Home, Self-Care 01 Clinical Impression: Sensation of foreign body in eye - Discharge Information *PRESCRIPTION DRUG MONITORING PROGRAM REVIEWED*: Not Applicable *COPY OF PRESCRIPTION DRUG MONITORING REPORT IN PATIENT BRENT: Not Applicable Instructions: Eye Foreign Body, [id number] Referrals: Gold Angulo MD [Primary Care Provider] - Forms: ED Department Discharge Additional Instructions: Return if condition worsens May resume general activity and regular diet as tolerated Continue usual medications Follow-up with primary care or eye care provider is recommended in 3 to 5 days Sepsis Event Note (ED) - Evaluation Sepsis Screening Result: No Definite Risk - Focused Exam Vital Signs: Vital Signs Temp Pulse Resp BP Pulse Ox 01/21/21 22:33 36.9 C 80 18 145/89 H 100
== END 2021-01-21 23:51 | disposition home or self-care (01) ==
LOC: JD.ED 22:19
DX: T15.91XA Foreign body on external eye, part unspecified, right eye, initial encounter (principal); Z88.5 Allergy status to narcotic agent; W45.8XXA Other foreign body or object entering through skin, initial encounter; Y99.0 Civilian activity done for income or pay
CPT/HCPCS: 99283

== ENCOUNTER 2023-03-26 15:08 | Emergency (ER) | payer BC ==
[2023-03-26 15:42] VITALS: BP 148/88; PULSE 99
== END 2023-03-26 15:45 | disposition home or self-care (01) ==
LOC: JD.ED 15:08
DX: K04.7 Periapical abscess without sinus (principal); K02.9 Dental caries, unspecified; F17.210 Nicotine dependence, cigarettes, uncomplicated; Z79.899 Other long term (current) drug therapy; Z88.6 Allergy status to analgesic agent
CPT/HCPCS: 99282; 99283

== ENCOUNTER 2023-10-28 19:11 | Emergency (ER) | payer SELFPAY ==
[2023-10-28 19:29] VITALS: BP 141/70; PULSE 103
[2023-10-28] MEDS: Sodium Chloride 0.9% 10 ML Syringe FLUSH PRN (19:59)
[2023-10-28] MEDS: HYDROmorphone 0.5 MG/0.5 ML Syringe IVPUSH ONE (19:59)
[2023-10-28] MEDS: Metoclopramide 10 MG/2 ML SDV IVPUSH ONE (19:59)
== END 2023-10-28 20:34 | disposition home or self-care (01) ==
LOC: JD.ED 19:11
DX: S50.11XA Contusion of right forearm, initial encounter (principal); F10.920 Alcohol use, unspecified with intoxication, uncomplicated; Z79.899 Other long term (current) drug therapy; Z88.6 Allergy status to analgesic agent; W11.XXXA Fall on and from ladder, initial encounter
CPT/HCPCS: 73080; 73090; 96374; 96375; 99283; J1170; J2765; J3490

== ENCOUNTER 2023-11-23 01:01 | Emergency (ER) | payer SELFPAY ==
[2023-11-23 01:27] LABS: BASOPHILS PERCENT AUTO 0.4 % (0.0-1.0); EOSINOPHILS ABSOLUTE AUTO 0.1 K/mm3 (0.0-0.4); EOSINOPHILS PERCENT AUTO 2.1 % (0.0-6.0); HEMOGLOBIN 14.4 gm/dl (14.0-18.0); IMMATURE GRAN ABSOLUTE AUTO 0.02 K/mm3 (0.00-0.05); IMMATURE GRAN PERCENT AUTO 0.3 % (0.0-0.4); LYMPHOCYTES ABSOLUTE AUTO 2.7 K/mm3 (1.0-4.8); LYMPHOCYTES PERCENT AUTO 40.4 % (24.0-44.0); MEAN CORPUSCULAR HEMOGLOBIN 32.1 pg (28.0-32.0); MEAN CORPUSCULAR HGB CONC 35.1 g/dl (32.0-36.0); MEAN CORPUSCULAR VOLUME 91.3 fl (83.0-99.0); MEAN PLATELET VOLUME 8.7 fl (9.4-12.4); MONOCYTES ABSOLUTE AUTO 0.6 K/mm3 (0.0-0.8); MONOCYTES PERCENT AUTO 8.3 % (0.0-8.0); NEUTROPHILS ABSOLUTE AUTO 3.3 K/mm3 (1.8-7.7); NEUTROPHILS PERCENT AUTO 48.5 % (41.0-71.0); PLATELET COUNT,PLT 217 K/mm3 (150-400); RED BLOOD CELL COUNT 4.49 M/mm3 (4.52-5.90); WHITE BLOOD CELL COUNT,WBC 6.76 K/mm3 (3.9-11.3)
[2023-11-23] MEDS: Aspirin 81 MG Tab.Chew PO ONE (01:40)
[2023-11-23] MEDS: LORazepam 2 MG/ML SDV IVPUSH ONE (01:40)
[2023-11-23 01:49] LABS: ALANINE AMINOTRANSFERASE,ALT 34 U/L (16-63); ALBUMIN 3.9 g/dl (3.4-5.0); ALKALINE PHOSPHATASE 59 U/L (46-116); ANION GAP 13.7 (5-15); ASPARTATE AMNIOTRANSFERASE,AST 20 U/L (15-37); BILIRUBIN TOTAL 0.2 mg/dL (0.2-1.0); BLOOD UREA NITROGEN,BUN 10 mg/dL (7-18); BUN/CREATININE RATIO 11.1 (14-18); C-REACTIVE PROTEIN <0.05 mg/dL (<0.30); CALCIUM 8.8 mg/dL (8.5-10.1); CARBON DIOXIDE,CO2 25 mEq/L (21-32); CHLORIDE,CL 101 mEq/L (98-107); CREATININE 0.9 mg/dL (0.7-1.3); ESTIMATED GFR 111 mL/min (>60); GLUCOSE RANDOM 106 mg/dL (70-99); MAGNESIUM 2.1 mg/dL (1.8-2.4); POTASSIUM,K 3.7 mEq/L (3.5-5.1); PROTEIN TOTAL,TP 7.7 g/dl (6.4-8.2); SODIUM,NA 136 mEq/L (136-145)
[2023-11-23 02:08] LABS: TROPONIN I HIGH SENSITIVITY < 4 pg/mL (<=76)
[2023-11-23] MEDS: Metoclopramide 10 MG/2 ML SDV IVPUSH ONE (02:20)
[2023-11-23] MEDS: HYDROmorphone 0.5 MG/0.5 ML Syringe IVPUSH ONE (02:20)
[2023-11-23] MEDS: diphenhydrAMINE 50 MG/ML SDV IVPUSH ONE (02:20)
[2023-11-23] MEDS: Sodium Chloride 0.9% 1,000 ML IV SCH (02:21)
[2023-11-23 02:53] VITALS: BP 128/92; PULSE 84
== END 2023-11-23 02:50 | disposition home or self-care (01) ==
LOC: JD.ED 01:01
DX: R07.89 Other chest pain (principal); Z88.8 Allergy status to other drugs, medicaments and biological substances
CPT/HCPCS: 36415; 71045; 80053; 83735; 84484; 85025; 86140; 93005; 96374; 99285; A9270; J2060; 93010; 99284